=== PATIENT | female | born 1935 | race Caucasian/White ===

== ENCOUNTER 2017-08-21 13:39 | Observation (INO) | payer MEDICARE, OTHER ==
--- NOTE | 2017-08-21 13:59 | RADIOLOGY REPORT (SQ) ---
EXAM DESCRIPTION: CT HEAD WITHOUT COMPLETED DATE/TIME: 08/21/2017 1:45 pm REASON FOR STUDY: poss stroke COMPARISON: 2012 TECHNIQUE: Axial images acquired through the brain without intravenous contrast. Images reviewed wi th bone, brain and subdural windows. Additional sagittal and coronal reconstructions were generated. Images stored on PACS. All CT scanners at this facility use dose modulation, iterative reconstruction, and/or weight based d osing when appropriate to reduce radiation dose to as low as reasonably achievable (ALARA). [facility]: Dose Right [facility]: CareDose [facility]: Dose Right [facility]: Teradose 4D [facility]: Smart Secoo RADIATION DOSE: CT Rad equipment meets quality standard of care and radiation dose reduction techniq ues were employed. CTDIvol: 53.2 mGy. DLP: 1044 mGy-cm. mGy. LIMITATIONS: None. FINDINGS: VENTRICLES: Normal size and contour. CEREBRUM: No masses. No hemorrhage. No midline shift. No evidence for acute infarction. Normal gra y/white matter differentiation. No areas of low density in the white matter. CEREBELLUM: No masses. No hemorrhage. No alteration of density. No evidence for acute infarction. EXTRAAXIAL SPACES: No fluid collections. No masses. ORBITS AND GLOBE: No intra- or extraconal masses. Normal contour of globe without masses. CALVARIUM: No fracture. PARANASAL SINUSES: No fluid or mucosal thickening. SOFT TISSUES: No mass or hematoma. OTHER: No other significant finding. IMPRESSION: NORMAL BRAIN CT WITHOUT CONTRAST. EVIDENCE OF ACUTE STROKE: No COMMENT: Pertinent positive or negative findings of the imaging study reported as a CRITICAL EXAM t o ER PROVIDER at13:52 on 08/21/2017. Category of Critical Exam: Stroke alert Quality ID # [id number]: Final reports with documentation of one or more dose reduction techniques (e.g., Au tomated exposure control, adjustment of the mA and/or kV according to patient size, use of iterative reconstruction technique) TECHNICAL DOCUMENTATION: JOB ID: [id number] [email or web address]- All Rights Reserved Reading location - IP/workstation name: [email or web address]
--- NOTE | 2017-08-21 14:07 | ER Document Report ---
ED Medical Screen (RME) - General Stated Complaint: POSSIBLE STROKE Time Seen by Provider: 08/21/17 14:02 Mode of Arrival: Medic Information source: Patient Notes: Patient presents emergency department with complaints of left-sided weakness. Patient reports that she was on her way to put bernard on her 's grave with her son. She reports all of a sudden she could not spanish moss picker anything with her left hand and her face started drooping. She is unsure how long her symptoms lasted, sx gone now. Her son became very concerned. She reports history of stroke Denies chest pain shortness of breath. Reports she feels a little bit weak right now TRAVEL OUTSIDE OF THE [place] IN LAST 30 DAYS: No - Related Data Allergies/Adverse Reactions: oxycodone HCl [From Percodan] Allergy (Verified 12/01/14 03:12) oxycodone terephthalate [From Percodan] Allergy (Verified 12/01/14 03:12) Past Medical History - Past Medical History Cardiac Medical History: Reports: Hx Atrial Fibrillation, Hx Hypertension Pulmonary Medical History: Reports: Hx COPD Denies: Hx Tuberculosis Renal/ Medical History: Reports: Hx Kidney Stones Musculoskeltal Medical History: Reports Hx Arthritis Psychiatric Medical History: Reports: Hx Depression Past Surgical History: Reports: Hx Appendectomy, Hx Cholecystectomy, Hx Hysterectomy. Denies: Hx Pacemaker - Immunizations Hx Diphtheria, Pertussis, Tetanus Vaccination: Yes
[2017-08-21 14:15] LABS: ABSOLUTE EOSINOPHILS # (AUTO) 0.1 10^3/uL (0.0-0.6); ABSOLUTE LYMPHOCYTES (AUTO) 2.4 10^3/uL (0.5-4.7); ABSOLUTE MONOCYTES (AUTO) 0.7 10^3/uL (0.1-1.4); ABSOLUTE NEUT (AUTO) 5.2 10^3/uL (1.7-8.2); BASOPHILS % (AUTO) 0.3 % (0-2); EOSINOPHILS % (AUTO) 1.7 % (0-6); HEMATOCRIT 38.1 % (36.0-47.0); HEMOGLOBIN 12.5 g/dL (12.0-15.5); LYMPHOCYTES % (AUTO) 28.5 % (13-45); MEAN CORPUSCULAR HEMOGLOBIN 28.2 pg (27.0-33.4); MEAN CORPUSCULAR HGB CONC 32.8 g/dL (32.0-36.0); MEAN CORPUSCULAR VOLUME 86 fl (80-97); MONOCYTES % (AUTO) 7.9 % (3-13); PLATELET COUNT 215 10^3/uL (150-450); RED BLOOD COUNT 4.43 10^6/uL (3.72-5.28); RED CELL DISTRIBUTION WIDTH 14.1 % (11.5-14.0); SEGMENTED NEUTROPHILS % (AUTO) 61.6 % (42-78); TOTAL CELLS COUNTED % (AUTO) 100 %; WHITE BLOOD COUNT 8.5 10^3/uL (4.0-10.5)
[2017-08-21 14:28] LABS: PARTIAL THROMBOPLASTIN TIME 46.6 SEC (23.5-35.8); PROTHROMBIN TIME 24.7 SEC (11.4-15.4)
--- NOTE | 2017-08-21 14:28 | ER Document Report ---
ED General - General Chief Complaint: S/S of Possible Stroke Stated Complaint: POSSIBLE STROKE Time Seen by Provider: 08/21/17 14:02 Mode of Arrival: Medic Information source: Patient Notes: 82-year-old female with a history of hypertension, atrial fibrillation, COPD, CHF, previous CVA in 2011 presents via EMS after having an episode of left- sided weakness and left-sided facial drooping. Patient states that just prior to arrival she was in the car with her son trying to get money out of her wallet and was unable to move her left arm. She states that her son noticed that the left side of her mouth was drooping. She did experience some expressive aphasia. Upon arrival to the emergency department all symptoms have resolved. Patient denies any preceding headache, chest pain, shortness of breath, she does state that she experienced some blurred vision , left arm paresthesias prior to the episode. Currently she denies any headache, visual changes, nausea, vomiting, chest pain, shortness of breath, abdominal pain. She does admit to dark and urine recently but denies any fever, chills, dysuria , hematuria. TRAVEL OUTSIDE OF THE [place] IN LAST 30 DAYS: No - HPI Onset: Just prior to arrival Onset/Duration: Sudden Quality of pain: No pain Severity: None Associated symptoms: denies: Chest pain, Headache, Nausea, Vomiting, Shortness of breath Exacerbated by: denies: Coughing Relieved by: Denies Similar symptoms previously: Yes Recently seen / treated by doctor: No - Related Data Allergies/Adverse Reactions: oxycodone HCl [From Percodan] Allergy (Verified 12/01/14 03:12) oxycodone terephthalate [From Percodan] Allergy (Verified 12/01/14 03:12) Past Medical History - General Information source: Patient - Social History Smoking Status: Former Smoker Cigarette use (# per day): No Chew tobacco use (# tins/day): No Smoking Education Provided: No Frequency of alcohol use: None Drug Abuse: None Lives with: Family Family History: Reviewed & Not Pertinent - Past Medical History Cardiac Medical History: Reports: Hx Atrial Fibrillation, Hx Hypertension Pulmonary Medical History: Reports: Hx COPD Denies: Hx Tuberculosis Renal/ Medical History: Reports: Hx Kidney Stones Musculoskeltal Medical History: Reports Hx Arthritis Psychiatric Medical History: Reports: Hx Depression Past Surgical History: Reports: Hx Appendectomy, Hx Cholecystectomy, Hx Hysterectomy. Denies: Hx Pacemaker - Immunizations Hx Diphtheria, Pertussis, Tetanus Vaccination: Yes Hx Pneumococcal Vaccination: 05/08/12 Review of Systems - Review of Systems Notes: Patient denies fever, chills, sore throat, chest pain, shortness of breath, abdominal pain, dysuria. She does admit to transient blurred vision, left- sided weakness. all sx's now resolved. Constitutional: See HPI Physical Exam - Vital signs Vitals: Pulse Resp BP Pulse Ox 63 14 161/84 H 97 08/21/17 13:55 08/21/17 13:55 08/21/17 13:55 08/21/17 13:55 - General General appearance: Appears well, Alert In distress: None - HEENT Head: Normocephalic, Atraumatic Eyes: Normal Conjunctiva: Normal Extraocular movements intact: Yes - No nystagmus Pupils: PERRL Visual mills normal: Yes Ears: Normal Tympanic membrane: Normal Mucous membranes: Dry Pharynx: Normal - Respiratory Respiratory status: No respiratory distress. No: Respiratory distress, Tachypnea Chest status: Nontender Breath sounds: Normal. No: Decreased air movement Chest palpation: Normal - Cardiovascular Rhythm: Regular Heart sounds: Normal auscultation Murmur: No Pulses: Normal: Radial, Dorsalis pedis - Abdominal Inspection: Normal Distension: No distension Bowel sounds: Normal Tenderness: Nontender Organomegaly: No organomegaly - Back Back: Normal, Nontender - Extremities General upper extremity: Normal inspection, Nontender, Normal color, Normal ROM , Normal strength, Normal temperature. No: Edema General lower extremity: Normal inspection, Nontender, Normal color, Normal ROM , Normal strength, Normal temperature, Normal weight bearing. No: Edema, Dawn' s sign - Neurological Neuro grossly intact: Yes Cognition: Normal Orientation: AAOx4 [place] Coma Scale Eye Opening: Spontaneous [place] Coma Scale Verbal: Oriented [place] Coma Scale Motor: Obeys Commands [place] Coma Scale Total: 15 Speech: Normal Cranial nerves: No: Facial palsy Cerebellar coordination: Normal. No: Gait ataxia Motor strength normal: LUE, RUE, LLE, RLE Sensory: Normal - Psychological Associated symptoms: Normal affect, Normal mood. No: Anxious, Confused, Uncooperative - Skin Skin Temperature: Warm Skin Moisture: Dry Skin Color: Normal Skin Turgor: Tenting Course - Re-evaluation Re-evalutation: Laboratory 08/21/17 08/21/17 08/21/17 13:55 13:55 13:55 WBC 8.5 RBC 4.43 Hgb 12.5 Hct 38.1 MCV 86 MCH 28.2 MCHC 32.8 RDW 14.1 H Plt Count 215 Seg Neutrophils % 61.6 Lymphocytes % 28.5 Monocytes % 7.9 Eosinophils % 1.7 Basophils % 0.3 Absolute Neutrophils 5.2 Absolute Lymphocytes 2.4 Absolute Monocytes 0.7 Absolute Eosinophils 0.1 Absolute Basophils 0.0 PT 24.7 H INR 2.10 APTT 46.6 H Sodium 138.2 Potassium 4.7 Chloride 100 Carbon Dioxide 33 H Anion Gap 5 BUN 21 H Creatinine 0.90 Est GFR ( Amer) > 60 Est GFR (Non-Af Amer) > 60 Glucose 99 Calcium 9.3 Total Bilirubin 0.9 Direct Bilirubin 0.3 Neonat Total Bilirubin Not Reportable Neonat Direct Bilirubin Not Reportable Neonat Indirect Bili Not Reportable AST 21 ALT 26 Alkaline Phosphatase 73 Creatine Kinase 37 CK-MB (CK-2) Troponin I NT-Pro-B Natriuret Pep Total Protein 6.9 Albumin 3.8 Urine Color Urine Appearance Urine pH Ur Specific Jeremiah Urine Protein Urine Glucose (UA) Urine Ketones Urine Blood Urine Nitrite Urine Bilirubin Urine Urobilinogen Ur Leukocyte Esterase Urine WBC (Auto) Urine RBC (Auto) U Hyaline Cast (Auto) Squamous Epi Cells Auto Urine Mucus (Auto) Urine Ascorbic Acid 08/21/17 08/21/17 08/21/17 13:55 13:55 14:44 WBC RBC Hgb Hct MCV MCH MCHC RDW Plt Count Seg Neutrophils % Lymphocytes % Monocytes % Eosinophils % Basophils % Absolute Neutrophils Absolute Lymphocytes Absolute Monocytes Absolute Eosinophils Absolute Basophils PT INR APTT Sodium Potassium Chloride Carbon Dioxide Anion Gap BUN Creatinine Est GFR ( Amer) Est GFR (Non-Af Amer) Glucose Calcium Total Bilirubin Direct Bilirubin Neonat Total Bilirubin Neonat Direct Bilirubin Neonat Indirect Bili AST ALT Alkaline Phosphatase Creatine Kinase CK-MB (CK-2) 0.51 Troponin I < 0.012 NT-Pro-B Natriuret Pep 1090 H Total Protein Albumin Urine Color STRAW Urine Appearance CLEAR Urine pH 5.0 Ur Specific Jeremiah 1.007 Urine Protein NEGATIVE Urine Glucose (UA) NEGATIVE Urine Ketones NEGATIVE Urine Blood SMALL H Urine Nitrite NEGATIVE Urine Bilirubin NEGATIVE Urine Urobilinogen NEGATIVE Ur Leukocyte Esterase NEGATIVE Urine WBC (Auto) 1 Urine RBC (Auto) 2 U Hyaline Cast (Auto) 3 Squamous Epi Cells Auto 1 Urine Mucus (Auto) RARE Urine Ascorbic Acid NEGATIVE Chest X-Ray 08/21/17 00:00 IMPRESSION: Linear scarring/ atelectasis. Cardiac enlargement. Head CT 08/21/17 00:00 IMPRESSION: NORMAL BRAIN CT WITHOUT CONTRAST. EVIDENCE OF ACUTE STROKE: No Head CTA 08/21/17 14:06 IMPRESSION: NO CTA EVIDENCE OF STENOSIS OR ANEURYSM OF THE [place]. Neck CTA 08/21/17 14:06 IMPRESSION: CALCIFIED AND NONCALCIFIED ATHEROSCLEROTIC PLAQUE WITHOUT SIGNIFICANT STENOSIS. NO DISSECTION. 08/21/17 14:36 82-year-old female with a history of atrial fibrillation, hypertension, CHF presents after an episode of left-sided weakness and difficulty speaking. Patient states this happened approximately 1 hour prior to arrival. Upon her arrival to the emergency department symptoms have resolved. NIH was performed and 0 at this time. Patient was placed on radiation monitor and an EKG was obtained which shows the patient to be in atrial fibrillation with a controlled rate. She is on Xarelto for this. Patient had a previous CVA in 2011. She states this left her with no residual deficits. 08/21/17 16:15 On Reevaluation family is now at the bedside. Son who witnessed the episode states it lasted approximately 5 minutes. 08/21/17 22:51 Patient will be admitted to hospitalist for observation. 08/21/17 22:52 Patient would benefit from observation overnight. - Vital Signs Vital signs: Temp Pulse Resp BP Pulse Ox 97.7 F 58 L 20 115/97 H 97 08/21/17 20:16 08/21/17 20:54 08/21/17 20:54 08/21/17 20:54 08/21/17 20:54 - Laboratory Result Diagrams: 08/21/17 13:55 08/21/17 13:55 Laboratory results interpreted by me: 08/21/17 08/21/17 08/21/17 13:55 13:55 13:55 RDW 14.1 H PT 24.7 H APTT 46.6 H Carbon Dioxide 33 H BUN 21 H NT-Pro-B Natriuret Pep Urine Blood 08/21/17 08/21/17 13:55 14:44 RDW PT APTT Carbon Dioxide BUN NT-Pro-B Natriuret Pep 1090 H Urine Blood SMALL H - Diagnostic Test Radiology reviewed: Image reviewed, Reports reviewed - EKG Interpretation by Me Rhythm: A.Fib Discharge - Discharge Clinical Impression: Transient ischemic attack (TIA) Condition: Good Disposition: ADMITTED OBSERVATION Admitting Provider: Hospitalist ED NIH Stroke Scale - NIH Stroke Scale *: 1. NIH scale should be completed with appropriate accompanying assessment tools. *: 2. The NIH should reflect what the patient is capable of doing and should not be coached by the clinician. 1a. Level of Consciousness: 0=Alert;keenly responsive -: 1=Drowsy -: 2=Obtunded -: 3=Coma/unresponsive or reflex to noxious stimuli. 1a. Responses: 0 1b. Orientation Questions: a. What month is it? -: b. How old are you? -: 0=Answers both questions correctly. -: 1=Answers one question correctly or patient is intubated or has orotracheal trauma. -: 2=Answers neither question correctly. 1b. Responses: 0 1c. Response to commands: a. Open and close eyes? -: b. Cnc Mill Set Up Operator and release hand? -: Credit is given despite weakness. Demonstration of task is permitted. Substitute command if hands cannot be used. -: 0=Performs both tasks correctly -: 1=Performs one task correctly -: 2=Performs neither task correctly 1c. Responses: 0 2. Gaze: Establish eye contact and instruct patient to "Follow my finger" -: 0=Normal -: 1=Partial gaze palsy. Gaze is abnormal in one or both eyes, but where forced deviation or total gaze paresis is not present. -: 2=Forced deviation or total gaze paresis. 2. Responses: 0 3. Visual Mills: Sees fingers in all four quadrants. -: 0=No visual loss. -: 1=Partial hemianopsia. -: 2=Complete hemianopsia. -: 3=Bilateral hemianopsia (including Cortical blindness) 3. Responses: 0 4. Facial Movement: Instruct patient to: -: a. Show me your teeth -: b. Raise your eyebrows -: c. Close your eyes -: d. Smile -: 0=Normal symmetrical movement -: 1=Minor paralysis (flattened nasolabial fold, asymmetry on smiling). -: 2=Partial paralysis (total or near total paralysis of lower face). -: 3=Complete paralysis of upper and lower face 4. Responses: 0 5. Motor functions (left arm): Alternate sides and extend each arm with palms down (90 degrees if sitting or 45 degrees for supine). -: 0=No drift;limb holds for full 10 seconds. -: 1=Drift; limb holds but drifts down before full 10 seconds, but does not hit bed. -: 2=Some effort against gravity; limb cannot get to or maintain position. -: 3=No effort against gravity; limb falls. -: 4=No movement. -: UN=Amputation, joint fusion, explain in comments. 5. Responses (left arm): 0 5. Motor Functions (right arm): Alternate sides and extend each arm with palms down (90 degrees if sitting or 45 degrees for supine). -: 0=No drift;limb holds for full 10 seconds. -: 1=Drift; limb holds but drifts down before full 10 seconds, but does not hit bed. -: 2=Some effort against gravity; limb cannot get to or maintain position. -: 3=No effort against gravity; limb falls. -: 4=No movement. -: UN=Amputation, joint fusion, explain in comments. 5. Responses (right arm): 0 6. Motor Functions (left leg): With patient lying supine, alternate sides and extend each leg (30 degrees always while supine). -: 0=No drift, leg holds position for full 5 seconds -: 1=Drift; leg falls before full 5 seconds but does not hit bed. -: 2=Some effort against gravity, leg falls to bed but some effort against gravity. -: 3=No effort against gravity, leg falls to bed immediately. -: 4=No movement. -: UN=Amputation, joint fusion; explain in comments. 6. Responses (left leg): 0 6. Motor Functions (right leg): With patient lying supine, alternate sides and extend each leg (30 degrees always while supine). -: 0=No drift, leg holds position for full 5 seconds -: 1=Drift; leg falls before full 5 seconds but does not hit bed. -: 2=Some effort against gravity, leg falls to bed but some effort against gravity. -: 3=No effort against gravity, leg falls to bed immediately. -: 4=No movement. -: UN=Amputation, joint fusion; explain in comments. 6. Responses (right leg): 0 7. Limb Ataxia: With eyes open instruct patient to: -: a. "Touch your finger to your nose". -: b. "Touch your heel to your pichardo" -: 0=Absent -: 1=Present in one limb. -: 2=Present in two limbs. -: UN=Amputation or joint fusion; explain in comments. 7. Responses: 0 8. Sensory: Test sensation using pinprick or noxious stimuli. Test as many body parts as possible. -: 0=Normal;no sensory loss -: 1=Mile to moderate sensory loss (patient feels pin prick but is less sharp on affected side). -: 2=Severe or total sensory loss. 8. Responses: 0 9. Best Language: Instruct patient to: -: a. "Describe what you see in this picture." -: b. "Name the items in this picture." -: c. "Read these sentences." -: 0=No aphasia, normal -: 1=Mild to moderate aphasia. -: 2=Severe aphasia -: 3=Mute, global aphasia, no usable speech or auditory comprehension. 9. Responses: 0 10. Articulation, Dysarthia: Instruct patient to: -: "Read these words" or "Repeat these words" -: 0=Normal -: 1=Mild to moderate; patient may slur some words but can be understood without difficulty. -: 2=Severe; patients speech so slurred as to be unintelligible in the absence of dysphasia. -: UN=Intubated or other physical barrier, explain in comments. 10. Responses: 0 11. Extinction or inattention: 0=No abnormality -: 1= Visual, tactile, auditory, spatial, or personal inattention or extinction to bilateral simulation in one or the sensory modalities. -: 2=Profound gary-inattention or gary-inattention to more than one modality; does not recognize own hand. 11. Responses: 0 - 1435 Total Score: 0
[2017-08-21 14:31] LABS: ALANINE AMINOTRANSFERASE 26 U/L (9-52); ALBUMIN 3.8 g/dL (3.5-5.0); ALKALINE PHOSPHATASE 73 U/L (38-126); ANION GAP 5 (5-19); ASPARTATE AMINO TRANSFERASE 21 U/L (14-36); BILIRUBIN,DIRECT 0.3 mg/dL (0.0-0.4); BILIRUBIN,TOTAL 0.9 mg/dL (0.2-1.3); BLOOD UREA NITROGEN 21 mg/dL (7-20); CALCIUM 9.3 mg/dL (8.4-10.2); CARBON DIOXIDE 33 mmol/L (22-30); CHLORIDE 100 mmol/L (98-107); CREATINE KINASE 37 U/L (30-135); GLUCOSE 99 mg/dL (75-110); POTASSIUM 4.7 mmol/L (3.6-5.0); SODIUM 138.2 mmol/L (137-145); TOTAL PROTEIN 6.9 g/dL (6.3-8.2)
--- NOTE | 2017-08-21 14:38 | RADIOLOGY REPORT (SQ) ---
EXAM DESCRIPTION: CHEST SINGLE VIEW COMPLETED DATE/TIME: 08/21/2017 1:58 pm REASON FOR STUDY: poss stroke COMPARISON: None. EXAM PARAMETERS: NUMBER OF VIEWS: One view. TECHNIQUE: Single frontal radiographic view of the chest acquired. RADIATION DOSE: NA LIMITATIONS: None. FINDINGS: LUNGS AND PLEURA: No opacities. Linear scarring/ atelectasis. MEDIASTINUM AND HILAR STRUCTURES: No masses. Contour normal. HEART AND VASCULAR STRUCTURES: Heart enlarged without failure. BONES: No acute findings. HARDWARE: None in the chest. OTHER: No other significant finding. IMPRESSION: Linear scarring/ atelectasis. Cardiac enlargement. TECHNICAL DOCUMENTATION: JOB ID: [id number] [employer]- All Rights Reserved Reading location - IP/workstation name: [email or web address]
[2017-08-21] MEDS ORDERED: NORMAL SALINE 500 ML IV ONE (14:39)
[2017-08-21 14:43] LABS: CREATINE KINASE MB 0.51 ng/mL (<4.55)
[2017-08-21 14:47] LABS: TROPONIN I < 0.012 ng/mL
--- NOTE | 2017-08-21 15:15 | RADIOLOGY REPORT (SQ) ---
EXAM DESCRIPTION: CTA HEAD COMPLETED DATE/TIME: 08/21/2017 3:03 pm REASON FOR STUDY: stroke sx's COMPARISON: Noncontrast head CT 08/21/2017 TECHNIQUE: Post IV contrast scanning, thin section axial imaging through the brain to evaluate the a rterial structures. Source and MIP images are saved and reviewed on PACS. Advanced 3D imaging as volume-rendering, MIPs, SSD performed? yes All CT scanners at this facility use dose modulation, iterative reconstruction, and/or weight based d osing when appropriate to reduce radiation dose to as low as reasonably achievable (ALARA). [facility]: Dose Right [facility]: CareDose [facility]: Dose Right [facility]: Teradose 4D [facility]: [employer] CONTRAST TYPE AND DOSE: Contrast type and volume not provided on scanned paperwork. RENAL FUNCTION: BUN 21; creatinine 0.90 LIMITATIONS: None. FINDINGS: [place]: The anterior, middle, posterior cerebral arteries are all patent. No ev idence of aneurysm or focal stenosis. POSTERIOR CIRCULATION: The distal vertebral arteries are patent as is the basilar artery. No aneurysm . BRAIN: No gross enhancing lesions as visualized. The superior cerebral hemispheres are not included in the field of view. BONES: Intact as visualized. SINUSES: No fluid or mucosal thickening. OTHER: Calcified atheromatous plaque is seen within the cavernous segments of the internal carotid ar teries, without focal stenosis. IMPRESSION: NO CTA EVIDENCE OF STENOSIS OR ANEURYSM OF THE [place]. TECHNICAL DOCUMENTATION: JOB ID: [id number] Quality ID # [id number]: Final reports with documentation of one or more dose reduction techniques (e.g., Au tomated exposure control, adjustment of the mA and/or kV according to patient size, use of iterative reconstruction technique) 2010 [employer]- All Rights Reserved Reading location - IP/workstation name: [email or web address]
--- NOTE | 2017-08-21 15:18 | RADIOLOGY REPORT (SQ) ---
EXAM DESCRIPTION: CTA NECK COMPLETED DATE/TIME: 08/21/2017 3:03 pm REASON FOR STUDY: stroke sx's COMPARISON: None. TECHNIQUE: Axial dynamic scanning technique with dynamic contrast enhancement through the extra-crawler dragline operator nial carotid and vertebral arteries. Multiplanar reconstruction. 3-D MIPS and Volume-rendered imag es acquired at the workstation and saved to PACS. Images are reviewed in soft tissue, bone, lung w indows. All CT scanners at this facility use dose modulation, iterative reconstruction, and/or weight based d osing when appropriate to reduce radiation dose to as low as reasonably achievable (ALARA). [facility]: Dose Right [facility]: CareDose [facility]: Dose Right [facility]: Teradose 4D [facility]: [employer] CONTRAST TYPE AND DOSE: contrast/concentration: Isovue 370.00 mg/ml; Total Contrast Delivered: 70.0 ml; Total Saline Delivered: 75.0 ml RENAL FUNCTION: BUN 21; creatinine 0.9 LIMITATIONS: None. FINDINGS: AORTIC ARCH: Normal three-vessel origin. Bilateral subclavian arteries are patent. No d issection. RIGHT CAROTIDS: Calcified and noncalcified atherosclerotic plaque is seen within the carotid bulb wit hout significant stenosis. Patent common, internal and external carotid arteries without suggestion of significant stenosis or irregular plaque. No dissection. RIGHT VERTEBRAL: Patent. No dissection. LEFT CAROTIDS: Patent common, internal and external carotid arteries without suggestion of significan t stenosis or irregular plaque. No dissection. LEFT VERTEBRAL: Patent. No dissection. OTHER: No other significant finding. OTHER: 3-D reconstructions confirm findings. IMPRESSION: CALCIFIED AND NONCALCIFIED ATHEROSCLEROTIC PLAQUE WITHOUT SIGNIFICANT STENOSIS. NO DISS ECTION. COMMENT: Quality ID #[id number]: Measurements of distal internal carotid diameter were used as the denomina tor for stenosis measurement. TECHNICAL DOCUMENTATION: JOB ID: [id number] Quality ID # [id number]: Final reports with documentation of one or more dose reduction techniques (e.g., Au tomated exposure control, adjustment of the mA and/or kV according to patient size, use of iterative reconstruction technique) 2010 [employer]- All Rights Reserved Reading location - IP/workstation name: [email or web address]
[2017-08-21 15:27] LABS: APPEARANCE,URINE CLEAR; BILIRUBIN,URINE NEGATIVE (NEGATIVE); COLOR,URINE STRAW; GLUCOSE, URINE NEGATIVE (NEGATIVE); KETONES,URINE NEGATIVE (NEGATIVE); URINE SPECIFIC GRAVITY 1.007
[2017-08-21 15:28] LABS: LEUKOCYTE ESTERASE,URINE NEGATIVE (NEGATIVE); NITRITE,URINE NEGATIVE (NEGATIVE); PROTEIN,URINE NEGATIVE (NEGATIVE); UROBILINOGEN,URINE NEGATIVE mg/dL (<2.0)
[2017-08-21] MEDS ORDERED: ACETAMINOPHEN 325 MG TABLET PO PRN (16:52)
[2017-08-21] MEDS ORDERED: CLONAZEPAM 1 MG TABLET PO PRN (17:03)
[2017-08-21] MEDS ORDERED: HYDRALAZINE HCL INJ/PF 20 MG/1 ML SDV IV PRN (17:13)
[2017-08-21] MEDS ORDERED: DILTIAZEM HCL INJ 25 MG/5 ML VIAL IV PRN (17:14)
--- NOTE | 2017-08-21 17:21 | EKG REPORT ---
SEVERITY:- ABNORMAL ECG - ATRIAL FIBRILLATION LEFT ANTERIOR FASCICULAR BLOCK PROBABLE LVH WITH SECONDARY REPOL ABNRM ANTERIOR Q WAVES, POSSIBLY DUE TO LVH : Confirmed by: Taiwo Crowder MD 21-Aug-2017 17:20:47
--- NOTE | 2017-08-21 18:06 | PDOC H&P ---
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 Patient states that she was visiting a gravesite today and noticed that she started having trouble with holding things in her left hand. Her left hand felt numb at the time. Her family member noticed that her left side of her face appeared to droop and she became dysarthric. Patient's family brought her immediately to the emergency department. Soon after arriving the patient noticed that she was able to speak more clearly. Also described facial droop resolving and getting her feeling back in her left hand. Patient admits to being anxious and nervous about her past medical treatment. Patient states in 2011 she had a CVA with left-sided weakness. At that time she was significantly agitated and confused. Recovered with an extended stay in rehab. Denies any other CVAs or TIAs. Patient has a non-stenosed CTA head and neck study. She is in chronic Afib on Xarelto. Her BP which is described as well controled, was elevated to 173/84 on monitor. Will admit as observation for her TIA, allow permissive HTN, and optimize medications for her TIA. She will benefit from OP followup with Neurology. Past Medical History Cardiac Medical History: Reports: Atrial Fibrillation, Hypertension Pulmonary Medical History: Reports: Chronic Obstructive Pulmonary Disease (COPD) Denies: Tuberculosis Musculoskeltal Medical History: Reports: Arthritis Psychiatric Medical History: Reports: Depression Past Surgical History Past Surgical History: Reports: Appendectomy, Cholecystectomy, Hysterectomy Denies: Pacemaker Social History Lives with: Family Smoking Status: Former Smoker Last Time Smoked: >30 years ago last time she smoked Frequency of Alcohol Use: None Hx Recreational Drug Use: No Hx Prescription Drug Abuse: No Family History Family History: Father had Bladder Cancer Mother had an PR Parental Family History Reviewed: Yes Children Family History Reviewed: Yes Sibling(s) Family History Reviewed.: Yes Medication/Allergy Home Medications: Digoxin 125 mg PO QAM 11/30/14 Furosemide [Lasix] 40 mg PO QAM 11/30/14 Rivaroxaban [Xarelto] 15 mg PO QPM 11/30/14 Acetaminophen [Tylenol] 500 mg PO BID 08/23/15 Magnesium Oxide 2 tab PO DAILY 08/23/15 Potassium Chloride [K-Tab ER] 20 meq PO DAILY 08/23/15 Carvedilol [Coreg] 1 tab PO BID 08/30/15 Clonazepam [Klonopin 1 mg Tablet] 1 mg PO QHS PRN 08/30/15 Allergies/Adverse Reactions: oxycodone HCl [From Percodan] Allergy (Verified 12/01/14 03:12) oxycodone terephthalate [From Percodan] Allergy (Verified 12/01/14 03:12) Review of Systems Constitutional: PRESENT: weakness. ABSENT: chills, fatigue, fever(s), headache( s), night sweats Eyes: PRESENT: as per HPI, visual disturbances - describes transient blurry vision. Ears: PRESENT: as per HPI. ABSENT: hearing changes Cardiovascular: ABSENT: chest pain, dyspnea on exertion, edema, palpitations Respiratory: ABSENT: cough, dyspnea, sputum Gastrointestinal: ABSENT: abdominal pain, diarrhea, nausea, vomiting Genitourinary: ABSENT: as per HPI, dysuria, hematuria Musculoskeletal: ABSENT: deformity, joint swelling Neurological: PRESENT: abnormal speech, confusion, focal weakness, numbness, weakness, other - period of left sided facial droop, dysarthria, left hand numbness/weakness, confusion: all now resolved. Psychiatric: PRESENT: anxiety. ABSENT: hallucinations Endocrine: ABSENT: as per HPI, flushing, polydipsia, polyphagia Hematologic/Lymphatic: ABSENT: easy bruising Physical Exam Vital Signs: Temp Pulse Resp BP Pulse Ox 63 19 157/99 H 94 08/21/17 13:55 08/21/17 16:00 08/21/17 14:02 08/21/17 16:00 General appearance: PRESENT: no acute distress, cooperative, obese Head exam: PRESENT: atraumatic, normocephalic Eye exam: PRESENT: conjunctiva pink, EOMI, PERRLA. ABSENT: nystagmus, scleral icterus Ear exam: PRESENT: normal external ear exam. ABSENT: bleeding Mouth exam: PRESENT: moist, neck supple. ABSENT: dry mucosa Neck exam: PRESENT: full ROM. ABSENT: JVD, lymphadenopathy, tenderness Respiratory exam: PRESENT: crackles, symmetrical. ABSENT: accessory muscle use , rhonchi, wheezes Cardiovascular exam: PRESENT: irregular rhythm - atrial fibrillation on monitor throughout exam., +S1, +S2. ABSENT: clicks, gallop, RRR Pulses: PRESENT: normal radial pulses, normal dorsalis pedis pul Vascular exam: PRESENT: normal capillary refill. ABSENT: pallor GI/Abdominal exam: PRESENT: soft. ABSENT: ascites, distended, mass, rigid, tenderness Extremities exam: ABSENT: calf tenderness, clubbing, pedal edema Musculoskeletal exam: PRESENT: ambulatory, full ROM Neurological exam: PRESENT: alert, oriented to person, oriented to place, oriented to time, oriented to situation, reflexes normal, CN II-XII grossly intact, other - No focal deficit found on exam. Speech is back to baseline. Patient swallowing liquid without difficulty. No focal numbness found on exam with the exception of an area on the right side of her face, which she states is chronic.. ABSENT: motor sensory deficit Psychiatric exam: PRESENT: anxious. ABSENT: manic, unusual affect Focused psych exam: ABSENT: euphoric, paranoid Skin exam: ABSENT: abrasion, cyanosis, dry Results Laboratory Results: 08/21/17 13:55 08/21/17 13:55 08/21/17 08/21/17 08/21/17 13:55 13:55 14:44 WBC 8.5 RBC 4.43 Hgb 12.5 Hct 38.1 MCV 86 MCH 28.2 MCHC 32.8 RDW 14.1 H Plt Count 215 Seg Neutrophils % 61.6 Lymphocytes % 28.5 Monocytes % 7.9 Eosinophils % 1.7 Basophils % 0.3 Absolute Neutrophils 5.2 Absolute Lymphocytes 2.4 Absolute Monocytes 0.7 Absolute Eosinophils 0.1 Absolute Basophils 0.0 Sodium 138.2 Potassium 4.7 Chloride 100 Carbon Dioxide 33 H Anion Gap 5 BUN 21 H Creatinine 0.90 Est GFR ( Amer) > 60 Est GFR (Non-Af Amer) > 60 Glucose 99 Calcium 9.3 Total Bilirubin 0.9 AST 21 ALT 26 Alkaline Phosphatase 73 Total Protein 6.9 Albumin 3.8 Urine Color STRAW Urine Appearance CLEAR Urine pH 5.0 Ur Specific [place] 1.007 Urine Protein NEGATIVE Urine Glucose (UA) NEGATIVE Urine Ketones NEGATIVE Urine Blood SMALL H Urine Nitrite NEGATIVE Ur Leukocyte Esterase NEGATIVE Urine WBC (Auto) 1 Urine RBC (Auto) 2 08/21/17 08/21/17 08/21/17 13:55 13:55 13:55 Creatine Kinase 37 CK-MB (CK-2) 0.51 Troponin I < 0.012 NT-Pro-B Natriuret Pep 1090 H Impressions: Chest X-Ray 08/21/17 00:00 IMPRESSION: Linear scarring/ atelectasis. Cardiac enlargement. Head CT 08/21/17 00:00 IMPRESSION: NORMAL BRAIN CT WITHOUT CONTRAST. EVIDENCE OF ACUTE STROKE: No Head CTA 08/21/17 14:06 IMPRESSION: NO CTA EVIDENCE OF STENOSIS OR ANEURYSM OF THE [place] OF [place]. Neck CTA 08/21/17 14:06 IMPRESSION: CALCIFIED AND NONCALCIFIED ATHEROSCLEROTIC PLAQUE WITHOUT SIGNIFICANT STENOSIS. NO DISSECTION. Assessment & Plan - Diagnosis (1) TIA (transient ischemic attack) Is this a current diagnosis for this admission?: Yes Plan: Patient was currently taking Xarelto for her Atrial fibrillation. CTA of head and neck did not demonstrate any stenoses. Admit to [facility] [place] under obs status check TTE for thrombus in setting of Afib. Check A1c, lipid panel, TSH. Start ASA, Lipitor reduce BP meds for permissive HTN. Q4H neuro monitoring. consult PT/OT/Speech. Patient appears to be at baseline. possible d/c home in next 24 hours (2) Atrial fibrillation Is this a current diagnosis for this admission?: Yes Plan: Continue Xarelto. Denies missing a dose. will continue a reduced dose of coreg for permissive htn prn Diltiazem IV with use parameters. (3) CHF (congestive heart failure) Is this a current diagnosis for this admission?: Yes Plan: Crackles in bases of her lungs. continue home diuretics and potassium support. Checking TTE for TIA workup. Last TTE in 08/2015 in chart shows a preserved EF. Prior pulmonary HTN noted on echo. hold coreg at present for permissive HTN continue digoxin from home, check level. (4) Pulmonary hypertension Is this a current diagnosis for this admission?: Yes Plan: continue her home lasix dosing, and potassium (5) Arthritis Is this a current diagnosis for this admission?: Yes Plan: prn Tylenol (6) Hypertension Is this a current diagnosis for this admission?: Yes Plan: permissive HTN desired. treat with Hydralazine IV if SBP > 220 (7) Anxiety Is this a current diagnosis for this admission?: Yes Plan: continue clonazepam from home. - Time Time Spent: 30 to 50 Minutes Anticipated discharge: Home Within: within 24 hours
[2017-08-21] MEDS ORDERED: ASPIRIN 325 MG TABLET PO ONE (18:15)
[2017-08-21] MEDS ORDERED: ATORVASTATIN CALCIUM 80 MG TABLET PO ONE (18:30)
--- NOTE | 2017-08-21 18:44 | XCELERA REPORT ---
[address] [address] Transthoracic Echocardiogram Report Name: WILBERT TERRAZAS Age: 82 yrs Gender: Female : 1935 Patient Status: Inpatient Patient Location: [place] [address]^A Study Date: 08/21/2017 06:07 PM Height: 60 in Weight: 153 lb BSA: 1.7 m2 Procedure: A complete two-dimensional transthoracic echocardiogram was performed (2D, M-mode, spectral and color flow Doppler). The study was technically adequate with some images being suboptimal in quality. Reason For Study: evaluate for thrombus, bubble study, CHF, PHTN Ordering Physician: NILDA LANDIS Performed By: Saumya Shabazz Interpretation Summary The left ventricular ejection fraction is normal. There is mild concentric left ventricular hypertrophy. The left ventricle is grossly normal size. Doppler measurements suggest pseudonormalized left ventricular relaxation, which is associated with grade II/IV or mild to moderate diastolic dysfunction Wall motion cannot be accurately commented on, but no definite regional wall motion abnormalities noted. The right ventricle is mild to moderately dilated. The right ventricular systolic function is normal. The right atrium is mildly dilated. Borderline left atrial enlargement. There is no mitral valve stenosis. There is a trace to mild amount of mitral regurgitation There is no aortic valve stenosis No aortic regurgitation is present. There is a trace or physiologic amount of tricuspid regurgitation Tricuspid regurgitation jet envelope not well defined to measure RV systolic pressure accurately. The aortic root is not well visualized but is probably normal size. The inferior vena cava appeared normal and decreased < 50% with respiration (RAP 10-15 mmHg) There is no pericardial effusion. No definite cardiac source of CVA/TIA noted on this particular trans- thoracic study. Consider KRYSTYNA if clinically indicated. May consider mobile cardiac telemetry monitoring (MCT) for ruling out transient AFIB. Probable A FIB during the study MMode/2D Measurements & Calculations RVDd: 3.6 cm LVIDd: 3.5 cm FS: 36.1 % Ao root diam: 3.1 cm IVSd: 1.3 cm LVIDs: 2.3 cm EDV(Teich): 52.1 ml LVPWd: 1.4 cm ESV(Teich): 17.3 ml Ao root area: 7.4 cm2 EF(Teich): 66.7 % LA dimension: 3.2 cm Doppler Measurements & Calculations MV E max shankar: MV P1/2t max shankar: Ao V2 max: LV V1 max P.8 cm/sec 95.8 cm/sec 118.1 cm/sec 2.7 mmHg MV P1/2t: 60.7 msec Ao max PG: LV V1 max: 5.6 mmHg 82.4 cm/sec MVA(P1/2t): 3.6 cm2 MV dec slope: 462.4 cm/sec2 PA V2 max: TR max shankar: 88.4 cm/sec 248.4 cm/sec PA max PG: TR max P.7 mmHg 3.1 mmHg Left Ventricle The left ventricle is grossly normal size. There is mild concentric left ventricular hypertrophy. The left ventricular ejection fraction is normal. Doppler measurements suggest pseudonormalized left ventricular relaxation, which is associated with grade II/IV or mild to moderate diastolic dysfunction. Wall motion cannot be accurately commented on, but no definite regional wall motion abnormalities noted. Right Ventricle The right ventricle is mild to moderately dilated. There is normal right ventricular wall thickness. The right ventricular systolic function is normal. Atria The right atrium is mildly dilated. Borderline left atrial enlargement. Interarterial septum not well visualized and not well dopplered. Cannot comment on ASD/PFO presence. Mitral Valve The mitral valve is grossly normal. There is no mitral valve stenosis. There is a trace to mild amount of mitral regurgitation. Aortic Valve The aortic valve is grossly normal. There is no aortic valve stenosis. No aortic regurgitation is present. Tricuspid Valve The tricuspid valve is not well visualized, but is grossly normal. There is no tricuspid stenosis. There is a trace or physiologic amount of tricuspid regurgitation. Tricuspid regurgitation jet envelope not well defined to measure RV systolic pressure accurately. Pulmonic Valve The pulmonic valve is not well visualized. Great Vessels The aortic root is not well visualized but is probably normal size. The inferior vena cava appeared normal and decreased < 50% with respiration (RAP 10-15 mmHg). Effusions There is no pericardial effusion. Incidental Findings No definite cardiac source of CVA/TIA noted on this particular trans- thoracic study. Consider KRYSTYNA if clinically indicated. May consider mobile cardiac telemetry monitoring (MCT) for ruling out transient AFIB. Probable A FIB during the study. : NILDA LANDIS > Shweta Price
[2017-08-21] MEDS ORDERED: RIVAROXABAN 15 MG TABLET PO ONE (19:30)
[2017-08-22 05:48] LABS: ABSOLUTE EOSINOPHILS # (AUTO) 0.2 10^3/uL (0.0-0.6); ABSOLUTE LYMPHOCYTES (AUTO) 2.6 10^3/uL (0.5-4.7); ABSOLUTE MONOCYTES (AUTO) 0.7 10^3/uL (0.1-1.4); ABSOLUTE NEUT (AUTO) 3.8 10^3/uL (1.7-8.2); BASOPHILS % (AUTO) 0.3 % (0-2); EOSINOPHILS % (AUTO) 3.1 % (0-6); HEMATOCRIT 36.2 % (36.0-47.0); HEMOGLOBIN 11.9 g/dL (12.0-15.5); LYMPHOCYTES % (AUTO) 35.2 % (13-45); MEAN CORPUSCULAR HEMOGLOBIN 28.2 pg (27.0-33.4); MEAN CORPUSCULAR HGB CONC 32.8 g/dL (32.0-36.0); MEAN CORPUSCULAR VOLUME 86 fl (80-97); MONOCYTES % (AUTO) 9.7 % (3-13); PLATELET COUNT 201 10^3/uL (150-450); RED CELL DISTRIBUTION WIDTH 14.3 % (11.5-14.0); SEGMENTED NEUTROPHILS % (AUTO) 51.7 % (42-78); TOTAL CELLS COUNTED % (AUTO) 100 %; WHITE BLOOD COUNT 7.3 10^3/uL (4.0-10.5)
[2017-08-22 06:17] LABS: ANION GAP 7 (5-19); BLOOD UREA NITROGEN 18 mg/dL (7-20); CALCIUM 9.4 mg/dL (8.4-10.2); CARBON DIOXIDE 31 mmol/L (22-30); CHLORIDE 104 mmol/L (98-107); GLUCOSE 89 mg/dL (75-110)
[2017-08-22 06:19] LABS: CHOLESTEROL 158.88 mg/dL (0-200); TRIGLYCERIDES 77 mg/dL (<150)
[2017-08-22 06:27] LABS: FREE T4 (FREE THYROXINE) 1.28 ng/dL (0.78-2.19)
[2017-08-22 06:30] LABS: DIRECT LDL 89 mg/dL (<100)
[2017-08-22 06:41] LABS: THYROID STIMULATING HORMONE 1.39 uIU/mL (0.47-4.68)
[2017-08-22] MEDS ORDERED: FUROSEMIDE 40 MG TABLET PO SCH (08:00)
[2017-08-22] MEDS ORDERED: DIGOXIN 0.125 MG TABLET PO SCH (08:00)
[2017-08-22] MEDS ORDERED: CARVEDILOL PO SCH (10:00)
[2017-08-22] MEDS ORDERED: ASPIRIN 81 MG TABLET, CHEWABLE PO SCH (10:00)
[2017-08-22] MEDS ORDERED: MAGNESIUM OXIDE 400 MG TABLET PO SCH (10:00)
[2017-08-22] MEDS ORDERED: CARVEDILOL 12.5 MG TABLET PO SCH (10:00)
[2017-08-22] MEDS ORDERED: POTASSIUM CHLORIDE 10 MEQ TABLET.SA PO SCH (10:00)
[2017-08-22] MEDS ORDERED: ASPIRIN 325 MG TABLET PO SCH (10:00)
[2017-08-22 10:19] VITALS: BP 136/72
--- NOTE | 2017-08-22 13:08 | PDOC DISCHARGE SUMMARY ---
General - Admit/Disc Date/PCP Admission Date/Primary Care Provider: 08/21/17 17:56 Discharge Date: 08/22/17 - Discharge Diagnosis (1) TIA (transient ischemic attack) Is this a current diagnosis for this admission?: Yes Summary: Presented with left facial and left UE weakness. Has history of Afib on Xarelto. - Work up: CTA head and neck negative for stenoses, TTE without thrombus - Labs: lipid panel, TSH, and HgA1c wnl - Started on ASA and Lipitor for secondary stroke prevention - On day of discharge, at baseline. Ambulating without issues and neurologically at baseline. Outpatient plan - Script given for ASA 81mg and Lipitor 40mg qhs - Continue good BP control - Follow up with PCP (2) Atrial fibrillation Is this a current diagnosis for this admission?: Yes Summary: - Continue home Coreg and Xarelto; no medication changes at discharge (3) CHF (congestive heart failure) Is this a current diagnosis for this admission?: Yes Summary: TTE this admission: HFpEF with Grade II/IV DD, likely due to history of HTN and age - Continue current regimen - Not on GRAYSON-i currently, however BP's may not tolerate addition of second agent - Additional Information Resuscitation Status: Full Code Discharge Diet: Cardiac Discharge Activity: Activity As Tolerated Prescriptions: Aspirin [Davy Aspirin] 81 mg PO DAILY #30 tab.chew Atorvastatin Calcium [Lipitor 40 mg Tablet] 40 mg PO QHS #30 tablet Home Medications: Digoxin 125 mg PO QAM 11/30/14 Furosemide [Lasix] 40 mg PO QAM 11/30/14 Rivaroxaban [Xarelto] 15 mg PO QPM 11/30/14 Acetaminophen [Tylenol] 500 mg PO BID 08/23/15 Magnesium Oxide 2 tab PO DAILY 08/23/15 Potassium Chloride [K-Tab ER] 20 meq PO DAILY 08/23/15 Carvedilol [Coreg] 1 tab PO BID 08/30/15 Clonazepam [Klonopin 1 mg Tablet] 1 mg PO QHS PRN 08/30/15 Aspirin [Davy Aspirin] 81 mg PO DAILY #30 tab.chew 08/22/17 Atorvastatin Calcium [Lipitor 40 mg Tablet] 40 mg PO QHS #30 tablet 08/22/17 History of Present Illness Patient complains of: left hand weakness/numbness, left facial droop History of Present Illness: WILBERT J FARNELL is a 82 year old female with a PMH of atrial fibrillation on Xarelto, pulmonary hypertension, 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 Patient states that she was visiting a gravesite today and noticed that she started having trouble with holding things in her left hand. Her left hand felt numb at the time. Her family member noticed that her left side of her face appeared to droop and she became dysarthric. Patient's family brought her immediately to the emergency department. Soon after arriving the patient noticed that she was able to speak more clearly. Also described facial droop resolving and getting her feeling back in her left hand. Patient admits to being anxious and nervous about her past medical treatment. Patient states in 2011 she had a CVA with left-sided weakness. At that time she was significantly agitated and confused. Recovered with an extended stay in rehab. Denies any other CVAs or TIAs. Patient has a non-stenosed CTA head and neck study. She is in chronic Afib on Xarelto. Admitted to Hospitalist service for observation. Physical Exam Vital Signs: Temp Pulse Resp BP Pulse Ox 97.8 F 58 L 16 136/72 H 95 08/22/17 10:18 08/22/17 10:18 08/22/17 10:18 08/22/17 10:18 08/22/17 10:18 Intake & Output 08/21/17 08/22/17 08/23/17 06:59 06:59 06:59 Intake Total 310 437 Output Total 1000 Balance -690 437 Weight 70.8 kg General appearance: PRESENT: no acute distress, well-developed, well-nourished Mouth exam: PRESENT: moist, neck supple Neck exam: ABSENT: carotid bruit Respiratory exam: PRESENT: unlabored. ABSENT: tachypnea, wheezes Cardiovascular exam: PRESENT: irregular rhythm. ABSENT: tachycardia GI/Abdominal exam: PRESENT: soft. ABSENT: tenderness Neurological exam: PRESENT: alert, awake, oriented to person, oriented to place , oriented to time, oriented to situation, CN II-XII grossly intact, motor sensory deficit. ABSENT: aphasic Psychiatric exam: PRESENT: normal mood Results Laboratory Results: 08/22/17 04:41 08/22/17 04:41 08/22/17 08/22/17 08/22/17 04:41 04:41 04:41 WBC 7.3 RBC 4.20 Hgb 11.9 L Hct 36.2 MCV 86 MCH 28.2 MCHC 32.8 RDW 14.3 H Plt Count 201 Seg Neutrophils % 51.7 Lymphocytes % 35.2 Monocytes % 9.7 Eosinophils % 3.1 Basophils % 0.3 Absolute Neutrophils 3.8 Absolute Lymphocytes 2.6 Absolute Monocytes 0.7 Absolute Eosinophils 0.2 Absolute Basophils 0.0 Sodium 142.0 Potassium 5.0 Chloride 104 Carbon Dioxide 31 H Anion Gap 7 BUN 18 Creatinine 0.84 Est GFR ( Amer) > 60 Est GFR (Non-Af Amer) > 60 Glucose 89 Calcium 9.4 Magnesium 1.9 Triglycerides Cholesterol LDL Cholesterol Direct VLDL Cholesterol HDL Cholesterol TSH 1.39 Free T4 1.28 08/22/17 04:41 WBC RBC Hgb Hct MCV MCH MCHC RDW Plt Count Seg Neutrophils % Lymphocytes % Monocytes % Eosinophils % Basophils % Absolute Neutrophils Absolute Lymphocytes Absolute Monocytes Absolute Eosinophils Absolute Basophils Sodium Potassium Chloride Carbon Dioxide Anion Gap BUN Creatinine Est GFR ( Amer) Est GFR (Non-Af Amer) Glucose Calcium Magnesium Triglycerides 77 Cholesterol 158.88 LDL Cholesterol Direct 89 VLDL Cholesterol 15.0 HDL Cholesterol 43 TSH Free T4 Impressions: Chest X-Ray 08/21/17 00:00 IMPRESSION: Linear scarring/ atelectasis. Cardiac enlargement. Head CT 08/21/17 00:00 IMPRESSION: NORMAL BRAIN CT WITHOUT CONTRAST. EVIDENCE OF ACUTE STROKE: No Head CTA 08/21/17 14:06 IMPRESSION: NO CTA EVIDENCE OF STENOSIS OR ANEURYSM OF THE [place] OF [place]. Neck CTA 08/21/17 14:06 IMPRESSION: CALCIFIED AND NONCALCIFIED ATHEROSCLEROTIC PLAQUE WITHOUT SIGNIFICANT STENOSIS. NO DISSECTION. Qualifiers - * PATEINT BEING DISCHARGED WITH ANY OF THE FOLLOWING DIAGNOSIS?: No
[2017-08-22] MEDS ORDERED: RIVAROXABAN 15 MG TABLET PO SCH (18:00)
[2017-08-22] MEDS ORDERED: ATORVASTATIN CALCIUM 80 MG TABLET PO SCH (22:00)
== END 2017-08-22 10:47 | disposition home or self-care (01) ==
LOC: ER 13:39 → EH 17:56 → 3N 20:00
PROVIDERS: ADMIT Internal Medicine; ATTEND Internal Medicine
DX: G45.9 Transient cerebral ischemic attack, unspecified (principal); I11.0 Hypertensive heart disease with heart failure; I50.9 Heart failure, unspecified; J44.9 Chronic obstructive pulmonary disease, unspecified; I48.91 Unspecified atrial fibrillation; I27.20 Pulmonary hypertension, unspecified; F41.9 Anxiety disorder, unspecified; I69.354 Hemiplegia and hemiparesis following cerebral infarction affecting left non-dominant side; Z87.891 Personal history of nicotine dependence; Z79.01 Long term (current) use of anticoagulants
CPT/HCPCS: 93005; 99285; 96360; 36415 ×2; 84439; 82553; 82550; 80162; 83735; 84443; 85025 ×2; 85610; 85730; 80048; 80053; 81001; 84484; 83036; 80061; 83880; 93306; 71045; 70450; 70496; 70498; 93010; G0378 ×3; A9270 ×8; J7040

== ENCOUNTER → 2017-10-01 | Outpatient (CLI) | payer MEDICARE, OTHER ==
--- NOTE | 2017-10-01 14:25 | RADIOLOGY REPORT (SQ) ---
EXAM DESCRIPTION: MRI HEAD WITHOUT COMPLETED DATE/TIME: 10/01/2017 1:43 pm REASON FOR STUDY: TRANSIENT CEREBRAL ISCHEMIC ATTACK, UNSPECIFIED G45.9 TRANSIENT CEREBRAL ISCHEMIC ATTACK, UNSPECIFIED COMPARISON: 04/27/2013. TECHNIQUE: Multiplanar imaging includes non-contrasted T1, T2, FLAIR, and diffusion with ADC map seq uences. Images stored on PACS. LIMITATIONS: None. FINDINGS: ANATOMY: No anomalies. Normal vascular flow voids. Pituitary fossa normal. CSF SPACES: Atrophy induced prominence of ventricles and CSF spaces. CEREBRUM: High signal intensity lesions scattered throughout the white matter on FLAIR imaging with d istribution suggesting micro-vascular ischemic changes. No evidence of hemorrhage, mass, or extraaxi al fluid collection. POSTERIOR FOSSA: No signal alteration. No hemorrhage. No edema, masses or mass effect. Internal gaudencio tory canals, cerebello-pontine angles normal. Small amount of fluid left mastoids. DIFFUSION IMAGING: Negative for acute or sub-acute infarction. ORBITS: No masses. Globes normal. PARANASAL SINUSES: No fluid levels. Mucosa normal. OTHER: No other significant finding. IMPRESSION: ATROPHY AND CHRONIC MICRO-VASCULAR ISCHEMIC CHANGES. OTHERWISE NORMAL MRI OF THE BRAIN W ITHOUT INTRAVENOUS GADOLINIUM CONTRAST. EVIDENCE OF ACUTE STROKE: NO. TECHNICAL DOCUMENTATION: JOB ID: [id number] [employer]- All Rights Reserved Reading location - IP/workstation name: Unknown
== END ==
LOC: RAD 12:45
PROVIDERS: ATTEND Nurse Practitioner
DX: G45.9 Transient cerebral ischemic attack, unspecified (principal)
CPT/HCPCS: 70551

== ENCOUNTER 2017-10-02 18:07 | Emergency (ER) | payer MEDICARE, OTHER ==
[2017-10-02] MEDS ORDERED: ONDANSETRON 4 MG TAB.RAPDIS PO ONE (20:02)
--- NOTE | 2017-10-02 20:04 | ER Document Report ---
ED Medical Screen (RME) - General Chief Complaint: Anxiety Stated Complaint: NAUSEA Time Seen by Provider: 10/02/17 19:55 Notes: RAPID MEDICAL EVALUATION DISCLOSURE I have seen this patient as part of a Rapid Medical Evaluation and, if applicable, placed any initially appropriate orders. The patient will be seen and fully evaluated, including a full history and physical exam, by a provider ( in Main ED or Fast Track) when a room becomes available. 82-year-old female here with complaints of headaches palpitations nausea and feeling jittery over the past 4 days. She has not had chest pain discomfort or shortness of breath with these symptoms. The symptoms have been progressively worsening and this is what brought her in. She was taken off of her clonazepam september and has been weaning herself off by using the 3 pills that she had left over by cutting them into smaller pieces. She thinks this is why she is having the symptoms. She does not know why her PCP took her off of the clonazepam. EXAM Clear to auscultation bilaterally Regular rate with irregularly irregular rhythm (has history of A. fib) Does not appear anxious She is quite jovial TRAVEL OUTSIDE OF THE [place] IN LAST 30 DAYS: No - Related Data Allergies/Adverse Reactions: oxycodone HCl [From Percodan] Allergy (Verified 12/01/14 03:12) oxycodone terephthalate [From Percodan] Allergy (Verified 12/01/14 03:12) Past Medical History - Past Medical History Cardiac Medical History: Reports: Hx Atrial Fibrillation, Hx Hypertension Pulmonary Medical History: Reports: Hx COPD Denies: Hx Tuberculosis Renal/ Medical History: Reports: Hx Kidney Stones. Denies: Hx Peritoneal Dialysis Musculoskeltal Medical History: Reports Hx Arthritis Psychiatric Medical History: Reports: Hx Depression Past Surgical History: Reports: Hx Appendectomy, Hx Cholecystectomy, Hx Hysterectomy. Denies: Hx Pacemaker - Immunizations Hx Diphtheria, Pertussis, Tetanus Vaccination: Yes History of Influenza Vaccine for 02/2017 - 07/2017 Season: No Physical Exam - Vital signs Vitals: Temp Pulse Resp BP Pulse Ox 98.5 F 80 16 164/86 H 96 10/02/17 18:34 10/02/17 18:34 10/02/17 18:34 10/02/17 18:34 10/02/17 18:34 Course - Vital Signs Vital signs: Temp Pulse Resp BP Pulse Ox 98.5 F 80 16 164/86 H 96 10/02/17 18:34 10/02/17 18:34 10/02/17 18:34 10/02/17 18:34 10/02/17 18:34 Doctor's Discharge - Discharge Instructions: Anxiety ([facility])
--- NOTE | 2017-10-02 20:48 | RADIOLOGY REPORT (SQ) ---
EXAM DESCRIPTION: CHEST 2 VIEWS COMPLETED DATE/TIME: 10/02/2017 8:34 pm REASON FOR STUDY: palpitations COMPARISON: Chest x-ray 08/23/2015. EXAM PARAMETERS: NUMBER OF VIEWS: two views TECHNIQUE: Digital Frontal and Lateral radiographic views of the chest acquired. RADIATION DOSE: NA LIMITATIONS: none FINDINGS: LUNGS AND PLEURA: Mild bibasilar atelectasis. No pleural effusion or pneumothorax. MEDIASTINUM AND HILAR STRUCTURES: No masses or contour abnormalities. HEART AND VASCULAR STRUCTURES: The heart is mildly enlarged. There is mild vascular congestion. BONES: Degenerative changes at the spine. HARDWARE: None in the chest. IMPRESSION: Mild cardiomegaly and mild vascular congestion. Mild bibasilar atelectasis. TECHNICAL DOCUMENTATION: JOB ID: [id number] [employer]- All Rights Reserved Reading location - IP/workstation name: [email or web address]
[2017-10-02 21:09] LABS: ABSOLUTE EOSINOPHILS # (AUTO) 0.1 10^3/uL (0.0-0.6); ABSOLUTE LYMPHOCYTES (AUTO) 2.5 10^3/uL (0.5-4.7); ABSOLUTE MONOCYTES (AUTO) 0.7 10^3/uL (0.1-1.4); BASOPHILS % (AUTO) 0.3 % (0-2); HEMATOCRIT 39.7 % (36.0-47.0); HEMOGLOBIN 13.1 g/dL (12.0-15.5); LYMPHOCYTES % (AUTO) 26.9 % (13-45); MEAN CORPUSCULAR HEMOGLOBIN 28.1 pg (27.0-33.4); MEAN CORPUSCULAR VOLUME 85 fl (80-97); MONOCYTES % (AUTO) 7.1 % (3-13); PLATELET COUNT 224 10^3/uL (150-450); RED BLOOD COUNT 4.66 10^6/uL (3.72-5.28); RED CELL DISTRIBUTION WIDTH 13.7 % (11.5-14.0); SEGMENTED NEUTROPHILS % (AUTO) 64.7 % (42-78); TOTAL CELLS COUNTED % (AUTO) 100 %; WHITE BLOOD COUNT 9.3 10^3/uL (4.0-10.5)
[2017-10-02] MEDS ORDERED: LORAZEPAM 1 MG TABLET PO ONE (21:22)
--- NOTE | 2017-10-02 21:24 | ER Document Report ---
ED General - General Chief Complaint: Anxiety Stated Complaint: NAUSEA Time Seen by Provider: 10/02/17 19:55 Notes: Patient is an 82-year-old female comes emergency department for chief complaint of 3-4 days of feeling nauseated, jittery, feeling some palpitations, and not being able to sleep. She also states that she developed some pain in her upper abdomen. She denies vomiting, she had a normal bowel movement earlier today. She denies chest pain or shortness of breath. She denies difficulty lying flat. She has a history of atrial fibrillation, COPD, hypertension, depression , she is on Xarelto, Coreg, digoxin, and she was just taken off of her Klonopin which she has taken for 30 years. She thinks her symptoms are from being off the Klonopin. Only reported symptoms at this time are mild nausea and some upper abdominal tenderness. TRAVEL OUTSIDE OF THE [place] IN LAST 30 DAYS: No - Related Data Allergies/Adverse Reactions: oxycodone HCl [From Percodan] Allergy (Verified 10/02/17 20:08) oxycodone terephthalate [From Percodan] Allergy (Verified 10/02/17 20:08) Past Medical History - General Information source: Patient - Social History Smoking Status: Never Smoker Chew tobacco use (# tins/day): No Frequency of alcohol use: None Drug Abuse: None Lives with: Family Family History: Reviewed & Not Pertinent Patient has suicidal ideation: No Patient has homicidal ideation: No - Past Medical History Cardiac Medical History: Reports: Hx Atrial Fibrillation, Hx Congestive Heart Failure, Hx Hypertension Pulmonary Medical History: Reports: Hx COPD Denies: Hx Tuberculosis Renal/ Medical History: Reports: Hx Kidney Stones. Denies: Hx Peritoneal Dialysis Musculoskeltal Medical History: Reports Hx Arthritis Psychiatric Medical History: Reports: Hx Depression Past Surgical History: Reports: Hx Appendectomy, Hx Cholecystectomy, Hx Hysterectomy, Hx Kidney (Renal Surgery) - Partial kidney removal. Denies: Hx Pacemaker - Immunizations Hx Diphtheria, Pertussis, Tetanus Vaccination: Yes Hx Pneumococcal Vaccination: 05/08/12 Review of Systems - Review of Systems Constitutional: See HPI EENT: No symptoms reported Cardiovascular: No symptoms reported Respiratory: No symptoms reported Gastrointestinal: See HPI Genitourinary: No symptoms reported Female Genitourinary: No symptoms reported Musculoskeletal: No symptoms reported Skin: No symptoms reported Hematologic/Lymphatic: No symptoms reported Neurological/Psychological: See HPI Physical Exam - Vital signs Vitals: Temp Pulse Resp BP Pulse Ox 98.5 F 80 16 164/86 H 96 10/02/17 18:34 10/02/17 18:34 10/02/17 18:34 10/02/17 18:34 10/02/17 18:34 Interpretation: Normal - General General appearance: Appears well, Alert - HEENT Head: Normocephalic, Atraumatic Eyes: Normal Pupils: PERRL - Respiratory Respiratory status: No respiratory distress Chest status: Nontender Breath sounds: Normal Chest palpation: Normal - Cardiovascular Rhythm: Irregularly irregular Heart sounds: Normal auscultation, S1 appreciated, S2 appreciated Murmur: No Normal capillary refill: Yes - Abdominal Inspection: Normal Distension: No distension Bowel sounds: Normal Tenderness: Tender - Tender in the mid to upper abdomen, this is reproducible, no overt guarding, no rebound tenderness, no rigidity Organomegaly: No organomegaly - Back Back: Normal, Nontender. No: Tender - Extremities General upper extremity: Normal inspection, Nontender, Normal color, Normal ROM , Normal temperature General lower extremity: Normal inspection, Nontender, Normal color, Normal ROM , Normal temperature, Normal weight bearing. No: Dawn's sign - Neurological Neuro grossly intact: Yes Cognition: Normal Orientation: AAOx4 [place] Coma Scale Eye Opening: Spontaneous [place] Coma Scale Verbal: Oriented [place] Coma Scale Motor: Obeys Commands [place] Coma Scale Total: 15 Speech: Normal Motor strength normal: LUE, RUE, LLE, RLE Sensory: Normal - Psychological Associated symptoms: Normal affect, Normal mood - Skin Skin Temperature: Warm Skin Moisture: Dry Skin Color: Normal Course - Re-evaluation Re-evalutation: CBC unremarkable, chemistry unremarkable, patient has mid abdominal tenderness on exam which is reproducible, no overt guarding but she does wince. She reports nausea. She does have a history of atrial fibrillation. Because of her age, history of atrial fibrillation, and abdominal pain on exam discussion was made for CTA of the abdomen, after discussion this was performed. This does not show any acute findings. There are a few soft rales on exam, mild pulmonary vascular congestion on x-ray, however patient denies any shortness of breath, I laid her flat on the bed and she had no signs of distress or discomfort, she had no hypoxia, tachypnea. Patient insists she does not feel short of breath. She states she feels normal. Remaining workup unremarkable except for elevated specific gravity in the urine. Patient was medicated with Lorazepam because of her suspected benzodiazepine withdrawal, afterwards her nausea, jitteriness, and general feeling unwell resolved. She is smiling and well-appearing. Patient already has a scheduled appointment in about a week with a provider again where the plan is to place her back on Klonopin. Patient states she is not sure why she was weaned off Klonopin. Patient provided with Zantac as well, discussed this, she has mid upper abdominal pain with unremarkable scan, she states she eats "terribly" and admits to having frequent upper abdominal upset. Discussed with patient and family at bedside. Patient will be provided with a small amount of Klonopin to avoid withdrawals and maintain her previous dose, discussed return precautions in detail, patient and family state satisfaction and agreement. - Vital Signs Vital signs: Temp Pulse Resp BP Pulse Ox 97.9 F 91 16 146/75 H 93 10/03/17 00:28 10/03/17 00:28 10/03/17 00:28 10/03/17 00:28 10/03/17 00:28 - Laboratory Result Diagrams: 10/02/17 20:50 10/02/17 20:50 Laboratory results interpreted by me: 10/02/17 10/02/17 20:50 23:34 AST 40 H Ur Leukocyte Esterase SMALL H Discharge - Discharge Clinical Impression: Nausea Medication withdrawal Qualifiers: Substance type: sedative, hypnotic or anxiolytic Qualified Code(s): F13.239 - Sedative, hypnotic or anxiolytic dependence with withdrawal, unspecified Abdominal pain Qualifiers: Abdominal location: generalized Qualified Code(s): R10.84 - Generalized abdominal pain Condition: Stable Disposition: HOME, SELF-CARE Instructions: Anxiety ([facility]) Additional Instructions: Your workup tonight did not show any concerning abnormalities. Your symptoms are most likely from rapidly coming off of benzodiazepines although this is not definite. You have been prescribed your regular medication, take as directed, follow-up with primary care for additional evaluation, management, and prescription. Return if you worsen including returned abdominal pain, nausea, vomiting, fever , passing out, chest pain, or any other concerning or worsening symptoms. Prescriptions: Clonazepam [Klonopin 1 mg Tablet] 1 mg PO ASDIR PRN #14 tablet PRN Reason: Ranitidine HCl [Zantac 150 mg Tablet] 150 mg PO DAILY #20 tablet Referrals: ANIBAL JOHNSON NP [Primary Care Provider] - Follow up as needed
[2017-10-02 21:41] LABS: ANION GAP 13 (5-19); BLOOD UREA NITROGEN 13 mg/dL (7-20); CALCIUM 9.9 mg/dL (8.4-10.2); CARBON DIOXIDE 27 mmol/L (22-30); CHLORIDE 102 mmol/L (98-107); GLUCOSE 105 mg/dL (75-110); PHOSPHORUS 3.8 mg/dL (2.5-4.5); POTASSIUM 4.1 mmol/L (3.6-5.0); SODIUM 142.2 mmol/L (137-145)
--- NOTE | 2017-10-02 21:41 | EKG REPORT ---
SEVERITY:- ABNORMAL ECG - ATRIAL FIBRILLATION LEFT ANTERIOR FASCICULAR BLOCK ANTERIOR INFARCT, OLD : Confirmed by: Taiwo Crowder MD 02-Oct-2017 21:41:22
[2017-10-02 22:26] LABS: ALANINE AMINOTRANSFERASE 22 U/L (9-52); ALBUMIN 4.2 g/dL (3.5-5.0); ALKALINE PHOSPHATASE 96 U/L (38-126); ASPARTATE AMINO TRANSFERASE 40 U/L (14-36); BILIRUBIN,DIRECT 0.4 mg/dL (0.0-0.4); BILIRUBIN,TOTAL 0.9 mg/dL (0.2-1.3); DIGOXIN 1.14 ng/mL (0.8-2.0); LIPASE 38.6 U/L (23-300); TOTAL PROTEIN 7.9 g/dL (6.3-8.2)
--- NOTE | 2017-10-02 23:39 | RADIOLOGY REPORT (SQ) ---
EXAM DESCRIPTION: CT ABDOMEN PELVIS WITHOUT THEN WITH IV CONTRAST CLINICAL HISTORY: 82 years Female, abd pain, nausea, afib Comparison: None. Technique: IV contrast. Coronal and sagittal reformat. This exam was performed according to our departmental dose-optimization program, which includes automated exposure control, adjustment of the mA and/or kV according to patient size and/or use of iterative reconstruction technique.[facility]: Dose Right [facility]: CareDose [facility]: Dose Right [facility]: Teradose 4D [facility]: LinPrim LIMITATIONS: None. Findings: Minimal pericardial fluid. Moderate coronary arterial calcification. Colonic diverticulosis. Atherosclerosis. Small calcified splenic granuloma. Small atelectasis or scar at the left lower lobe. Likely benign left renal cyst. 0.3 cm right renal stone/atherosclerotic calcification. Cholecystectomy clips. 0.9 cm common bile duct diameter; no intrahepatic ductal dilation. Fat replacement of the pancreatic head. Moderate L4 and T12 anterior compression deformity. Mild L5 anterior vertebral compression deformity. No ascites. Inferior thorax, liver, spleen, adrenals, renal system, gastrointestinal tract, pelvic organs, lymphatics, vasculature, and musculoskeleton appear otherwise unremarkable. IMPRESSION: 1. Moderate T12 and L4 vertebral compression deformity, indeterminate age. 2. Else, no acute findings in the abdomen and pelvis.
[2017-10-03 00:21] LABS: APPEARANCE,URINE CLEAR; BILIRUBIN,URINE NEGATIVE (NEGATIVE); COLOR,URINE YELLOW; GLUCOSE, URINE NEGATIVE (NEGATIVE); KETONES,URINE NEGATIVE (NEGATIVE); LEUKOCYTE ESTERASE,URINE SMALL (NEGATIVE); NITRITE,URINE NEGATIVE (NEGATIVE); PROTEIN,URINE NEGATIVE (NEGATIVE); URINE SPECIFIC GRAVITY 1.056; UROBILINOGEN,URINE NEGATIVE mg/dL (<2.0)
[2017-10-03 00:32] VITALS: BP 146/75
== END 2017-10-03 00:32 | disposition home or self-care (01) ==
LOC: ER 18:07
DX: F13.239 Sedative, hypnotic or anxiolytic dependence with withdrawal, unspecified (principal); R10.84 Generalized abdominal pain; R11.0 Nausea; F41.9 Anxiety disorder, unspecified; R00.2 Palpitations; R10.10 Upper abdominal pain, unspecified; J44.9 Chronic obstructive pulmonary disease, unspecified; I10 Essential (primary) hypertension; Z79.01 Long term (current) use of anticoagulants; Z79.899 Other long term (current) drug therapy
CPT/HCPCS: 93005; 99284; 36415; 80162; 83690; 83735; 84100; 84443; 85025; 80076; 80048; 81001; 84484; 71046; 74174; 93010; A9270 ×2; S0119

== ENCOUNTER 2018-09-15 14:29 | Emergency (ER) | payer MEDICARE, OTHER ==
[2018-09-15 14:48] LABS: INTERNATIONAL RATION (INR) 1.12
--- NOTE | 2018-09-15 14:50 | RADIOLOGY REPORT (SQ) ---
EXAM DESCRIPTION: CT HEAD WITHOUT COMPLETED DATE/TIME: 09/15/2018 2:39 pm REASON FOR STUDY: bed mp stroke alert COMPARISON: 11/13/2017 TECHNIQUE: Axial images acquired through the brain without intravenous contrast. Images reviewed wi th bone, brain and subdural windows. Additional sagittal and coronal reconstructions were generated. Images stored on PACS. All CT scanners at this facility use dose modulation, iterative reconstruction, and/or weight based d osing when appropriate to reduce radiation dose to as low as reasonably achievable (ALARA). [facility]: Dose Right [facility]: CareDose [facility]: Dose Right [facility]: Teradose 4D [facility]: [employer] RADIATION DOSE: 487 mGy cm LIMITATIONS: None. FINDINGS: VENTRICLES: Normal size and contour. CEREBRUM: No masses. No hemorrhage. No midline shift. No evidence for acute infarction. Normal gra y/white matter differentiation. No areas of low density in the white matter. CEREBELLUM: No masses. No hemorrhage. No alteration of density. No evidence for acute infarction. EXTRAAXIAL SPACES: No fluid collections. No masses. ORBITS AND GLOBE: No intra- or extraconal masses. Normal contour of globe without masses. CALVARIUM: No fracture. PARANASAL SINUSES: No fluid or mucosal thickening. SOFT TISSUES: No mass or hematoma. OTHER: No other significant finding. IMPRESSION: No CT evidence of acute stroke or hemorrhage. EVIDENCE OF ACUTE STROKE: NO. Findings reported by telephone to Dr. Francis, 1442 hours, 09/15/2018 COMMENT: Quality ID # [id number]: Final reports with documentation of one or more dose reduction techniques (e.g., Automated exposure control, adjustment of the mA and/or kV according to patient size, use of iterative reconstruction technique) TECHNICAL DOCUMENTATION: JOB ID: [id number] [employer]- All Rights Reserved Reading location - IP/workstation name: [email or web address]
[2018-09-15 14:53] LABS: ABSOLUTE EOSINOPHILS # (AUTO) 0.1 10^3/uL (0.0-0.6); ABSOLUTE LYMPHOCYTES (AUTO) 2.2 10^3/uL (0.5-4.7); ABSOLUTE MONOCYTES (AUTO) 0.5 10^3/uL (0.1-1.4); ABSOLUTE NEUT (AUTO) 4.7 10^3/uL (1.7-8.2); BASOPHILS % (AUTO) 0.3 % (0-2); EOSINOPHILS % (AUTO) 0.9 % (0-6); HEMATOCRIT 37.4 % (36.0-47.0); HEMOGLOBIN 12.4 g/dL (12.0-15.5); LYMPHOCYTES % (AUTO) 29.6 % (13-45); MEAN CORPUSCULAR HEMOGLOBIN 28.4 pg (27.0-33.4); MEAN CORPUSCULAR HGB CONC 33.1 g/dL (32.0-36.0); MEAN CORPUSCULAR VOLUME 86 fl (80-97); MONOCYTES % (AUTO) 7.3 % (3-13); PLATELET COUNT 214 10^3/uL (150-450); RED BLOOD COUNT 4.36 10^6/uL (3.72-5.28); RED CELL DISTRIBUTION WIDTH 15.4 % (11.5-14.0); SEGMENTED NEUTROPHILS % (AUTO) 61.9 % (42-78); TOTAL CELLS COUNTED % (AUTO) 100 %; WHITE BLOOD COUNT 7.5 10^3/uL (4.0-10.5)
--- NOTE | 2018-09-15 14:53 | RADIOLOGY REPORT (SQ) ---
EXAM DESCRIPTION: CHEST SINGLE VIEW COMPLETED DATE/TIME: 09/15/2018 2:42 pm REASON FOR STUDY: bed mp stroke alert COMPARISON: Chest films 10/02/2017, 08/21/2017 EXAM PARAMETERS: NUMBER OF VIEWS: One view. TECHNIQUE: Single frontal radiographic view of the chest acquired. RADIATION DOSE: NA LIMITATIONS: None. FINDINGS: LUNGS AND PLEURA: Stable scarring or atelectasis in the right lung near the minor fissure, and lingula. No pleural effusions. No pneumothorax. MEDIASTINUM AND HILAR STRUCTURES: No masses. Contour normal. HEART AND VASCULAR STRUCTURES: Stable cardiomegaly BONES: No acute findings. HARDWARE: None in the chest. OTHER: No other significant finding. IMPRESSION: Stable cardiomegaly and bandlike atelectasis or scarring in both lungs. TECHNICAL DOCUMENTATION: JOB ID: [id number] [employer]- All Rights Reserved Reading location - IP/workstation name: [email or web address]
[2018-09-15 15:13] LABS: ALANINE AMINOTRANSFERASE 37 U/L (9-52); ALBUMIN 3.9 g/dL (3.5-5.0); ALKALINE PHOSPHATASE 102 U/L (38-126); ANION GAP 6 (5-19); ASPARTATE AMINO TRANSFERASE 36 U/L (14-36); BILIRUBIN,DIRECT 0.4 mg/dL (0.0-0.4); BILIRUBIN,TOTAL 1.5 mg/dL (0.2-1.3); BLOOD UREA NITROGEN 18 mg/dL (7-20); CALCIUM 9.5 mg/dL (8.4-10.2); CARBON DIOXIDE 31 mmol/L (22-30); CHLORIDE 101 mmol/L (98-107); CREATINE KINASE 37 U/L (30-135); GLUCOSE 84 mg/dL (75-110); POTASSIUM 5.2 mmol/L (3.6-5.0); SODIUM 137.8 mmol/L (137-145); TOTAL PROTEIN 7.6 g/dL (6.3-8.2)
[2018-09-15 15:16] VITALS: BP 149/74
[2018-09-15 15:20] LABS: CREATINE KINASE MB 0.37 ng/mL (<4.55)
[2018-09-15 15:22] LABS: TROPONIN I < 0.012 ng/mL
--- NOTE | 2018-09-15 16:02 | ER Document Report ---
ED Neuro Symptoms/Deficit - General Stated Complaint: POSSIBLE STROKE Time Seen by Provider: 09/15/18 15:42 Primary Care Provider: ANIBAL RICARDO NP [Primary Care Provider] - Follow up tomorrow Notes: Patient was conversing with another person about 1 PM today when she started having trouble pronouncing words including pronounce some words. She was thinking correctly and did not have any other neurologic findings or symptoms, but just could not pronounce words. Patient has had 3 previous TIAs. Each of them involved her lack of use of her left arm. That is not present today. When she came to the emergency department by EMS on her way to CT scan, I evaluated the patient and she seemed a bit confused and said she still felt she was having trouble with her speech. After her CT scan and she was back in her room, her symptoms seem to have totally subsided. She and her son who is presents today that her speech is back to normal and she seems to be acting normally in every way. Patient is on Eliquis, but is supposed to be taking 2.5 mg twice a day and she is only been taking it once a day. She has a history of atrial fibril lation. She is on digoxin and carvedilol TRAVEL OUTSIDE OF THE [place] IN LAST 30 DAYS: No - HPI Patient complains to provider of: Speech Impairment - Related Data Allergies/Adverse Reactions: oxycodone HCl [From Percodan] Allergy (Verified 09/16/18 17:49) oxycodone terephthalate [From Percodan] Allergy (Verified 09/16/18 17:49) Past Medical History - Social History Smoking Status: Unknown if Ever Smoked Family History: Reviewed & Not Pertinent Patient has suicidal ideation: No Patient has homicidal ideation: No - Past Medical History Cardiac Medical History: Reports: Hx Atrial Fibrillation, Hx Congestive Heart Failure, Hx Hypertension Pulmonary Medical History: Reports: Hx COPD Denies: Hx Tuberculosis Renal/ Medical History: Reports: Hx Kidney Stones Musculoskeletal Medical History: Reports Hx Arthritis Psychiatric Medical History: Reports: Hx Depression Past Surgical History: Reports: Hx Appendectomy, Hx Cholecystectomy, Hx Hysterectomy, Hx Kidney (Renal Surgery) - Partial kidney removal - Immunizations Hx Diphtheria, Pertussis, Tetanus Vaccination: Yes Hx Pneumococcal Vaccination: 05/08/12 Review of Systems - Review of Systems Notes: REVIEW OF SYSTEMS: CONSTITUTIONAL : Denies fever. EENT: Denies eye, ear, nose or mouth or throat pain or other symptoms. CARDIOVASCULAR: Denies chest pain. RESPIRATORY: Denies cough, chest congestion, or shortness of breath. GASTROINTESTINAL: Denies abdominal pain or nausea, vomiting, or diarrhea. GENITOURINARY: Denies difficulty or painful urinating, urinary frequency, blood in urine. MUSCULOSKELETAL: Denies back or neck pain. Denies joint pain or swelling. SKIN: Denies rash or skin lesions. NEUROLOGICAL: Only neurologic deficit patient had was speech difficulty, which is totally resolved at this time. Otherwise her neurologic exam is normal. Denies LOC or altered mental status. Denies headache. Denies sensory loss or motor deficits. ALL OTHER SYSTEMS REVIEWED AND NEGATIVE. Physical Exam - Vital signs Vitals: Pulse Resp BP Pulse Ox 66 17 136/84 H 93 09/15/18 14:35 09/15/18 14:35 09/15/18 14:35 09/15/18 14:35 Interpretation: Normal - Notes Notes: PHYSICAL EXAMINATION: GENERAL: Well-appearing, in no acute distress. Vital signs are all normal. HEAD: Atraumatic, normocephalic. EYES: Pupils equal round and reactive to light, extraocular movements intact. ENT: oropharynx clear without exudates. Moist mucous membranes. NECK: Normal range of motion, supple. LUNGS: Breath sounds clear and equal bilaterally. HEART: Regular rate and rhythm without murmurs. ABDOMEN: Soft, nontender. No guarding or rebound. No masses. BACK: No tenderness throughout entire back. EXTREMITIES: Normal range of motion without pain. NEUROLOGICAL: Normal speech, normal gait. Patient is able to walk all around the examining room and in the adjacent hallway. Normal sensory, motor, and reflex exams. Awake, alert, and oriented x3. Cranial nerves normal. PSYCH: Normal mood, normal affect. SKIN: Warm, dry, no rashes. Course - Re-evaluation Re-evalutation: 09/15/18 18:14 I discussed the patient's condition and findings with her primary care provider, nurse practitioner Haleigh. The patient wishes to go home. Her son who is visiting from out of town thinks the patient is safe to go home and they have been through this on 3 prior occasions and understand there is some risks to her going home but feel they are willing to take that risk. Ms. Ricardo confirmed that the patient is supposed to be on Eliquis twice a day and patient and her son was made aware of that. I expressed question about the patient's heart rate being 53 with her atrial fibrillation. We agreed that the patient would follow-up with Mary Ellen Bisi [address] [address] morning at 8:00 in the morning and she would look at her heart medications which include digoxin 125 mcg daily and carvedilol 25 mg twice a day as possible causes for her to have a bradycardia. Patient understood and said that it would be difficult for them to make it to her office at 8:00 because the patient just does not get going very early in the morning. I told him to at least call Ms. Navarrete's office at 8 AM with an update of how she is doing and so that everybody is aware of what is happening. 09/15/18 18:18 Patient's digoxin level came back at 2.16 which is just slightly above the upper range of normal and therapeutic at 2.0. I do not believe that this needs to be changed at this time. - Vital Signs Vital signs: Temp Pulse Resp BP Pulse Ox 66 16 149/74 H 93 09/15/18 15:00 09/15/18 15:16 09/15/18 15:01 09/15/18 15:01 - Laboratory Result Diagrams: 09/15/18 14:08 09/15/18 14:08 Laboratory results interpreted by me: 09/15/18 09/15/18 09/15/18 14:08 14:08 14:08 RDW 15.4 H Potassium 5.2 H Carbon Dioxide 31 H Est GFR (Non-Af Amer) 57 L Total Bilirubin 1.5 H Digoxin 2.16 H* - Diagnostic Test Radiology reviewed: Image reviewed, Reports reviewed - CT scan was normal. Patient does not have any evidence of a stroke on the CT scan. Discharge - Discharge Clinical Impression: TIA (transient ischemic attack) Condition: Stable Disposition: HOME, SELF-CARE Additional Instructions: Transient Ischemic Attack You have been diagnosed as having a transient ischemic attack (TIA). This is caused when an artery to the brain has been temporarily blocked. It can result in visual changes, difficulty with speech, and weakness or numbness -- usually limited to one side of the body. TIA symptoms usually resolve within an hour, but a TIA is serious, as it may be a warning sign of an impending stroke. To prevent further episodes, you may be placed on medication to reduce the possibility that your platelets will aggregate and form blood clots in the arteries that supply the brain. Usually, this includes aspirin and sometimes other platelet inhibitors. Further evaluation is often necessary to make an exact diagnosis as to where these blood clots are originating, and if anything else needs to be done to correct the problem. Call the physician or go to the emergency room if episodes occur with increasing frequency. If symptoms occur that don't go away within a few minutes, call 911. NORMAL EXAM AND WORKUP: At this time, your examination and workup show no significant abnormality. No significant abnormal physical findings were noted. All laboratory, EKG, and imaging (x-ray, CT scans, ultrasound) studies that were ordered show no significant abnormality. Although your examination and all studies that were ordered showed no significant abnormal finding, there are no examinations and no studies that are 100% accurate. There is always the possibility that some abnormality could exist and not be detected with physical examination or within the limits and capabilities of laboratory and other studies. You should return or follow up as you were instructed on your visit today for further evaluation if your symptoms do not resolve. You should be taking your Eliquis twice a day, different than you have been taking. Continue all of your other medications as before. You have an appointment to see Ms. Ricardo at 8 AM tomorrow morning. If you are doing well in do not think you need to be seen, call their office and let them know that she will not be there at that time. We all know and agree that there is some small risk to sending you home, but since you are symptom-free and ambulatory and your CT scan is normal, I think it is a reasonable approach. You have been through this 3 previous times, twice being sent home without hospitalization and did well. Hopefully that will be the outcome this time as well. FOLLOW-UP CARE: If you have been referred to a physician for follow-up care, call the physicians office for an appointment as you were instructed or within the next two days. If you experience worsening or a significant change in your symptoms, notify the physician immediately or return to the Emergency Department at any t [facility] for re-evaluation. Referrals: ANIBAL RICARDO NP [Primary Care Provider] - Follow up tomorrow
--- NOTE | 2018-09-15 18:59 | EKG REPORT ---
SEVERITY:- ABNORMAL ECG - ATRIAL FIBRILLATION LAD, CONSIDER LAFB OR INFERIOR INFARCT CONSIDER ANTEROSEPTAL INFARCT : Confirmed by: Taiwo Crowder MD 15-Sep-2018 18:59:04
== END 2018-09-15 16:00 | disposition home or self-care (01) ==
LOC: ER 14:29
DX: G45.9 Transient cerebral ischemic attack, unspecified (principal); R47.89 Other speech disturbances; I48.91 Unspecified atrial fibrillation; T45.516A Underdosing of anticoagulants, initial encounter; Z91.14 Patient's other noncompliance with medication regimen; Z79.01 Long term (current) use of anticoagulants; Z79.899 Other long term (current) drug therapy; I10 Essential (primary) hypertension; J44.9 Chronic obstructive pulmonary disease, unspecified; Z88.5 Allergy status to narcotic agent
CPT/HCPCS: 36415; 70450; 71045; 80053; 80162; 82550; 82553; 82962; 84484; 85025; 85610; 85730; 93005; 93010; 99285

== ENCOUNTER 2018-09-30 15:08 | Emergency (ER) | payer MEDICARE, OTHER ==
[2018-09-30] MEDS ORDERED: ACETAMINOPHEN 325 MG TABLET PO ONE (15:30)
[2018-09-30 15:31] VITALS: BP 156/72
--- NOTE | 2018-09-30 15:50 | RADIOLOGY REPORT (SQ) ---
EXAM DESCRIPTION: CT HEAD WITHOUT COMPLETED DATE/TIME: 09/30/2018 3:30 pm REASON FOR STUDY: fall on blood thinners COMPARISON: CT brain 09/16/2018 TECHNIQUE: Axial images acquired through the brain without intravenous contrast. Images reviewed wi th bone, brain and subdural windows. Additional sagittal and coronal reconstructions were generated. Images stored on PACS. All CT scanners at this facility use dose modulation, iterative reconstruction, and/or weight based d osing when appropriate to reduce radiation dose to as low as reasonably achievable (ALARA). [facility]: Dose Right [facility]: CareDose [facility]: Dose Right [facility]: Teradose 4D [facility]: [place] RADIATION DOSE: CT Rad equipment meets quality standard of care and radiation dose reduction techniq ues were employed. CTDIvol: 53.2 mGy. DLP: 1070 mGy-cm. mGy. LIMITATIONS: None. FINDINGS: VENTRICLES: Normal size and contour. CEREBRUM: No masses. No hemorrhage. No midline shift. No evidence for acute infarction. Normal gra y/white matter differentiation. No areas of low density in the white matter. CEREBELLUM: No masses. No hemorrhage. No alteration of density. No evidence for acute infarction. EXTRAAXIAL SPACES: No fluid collections. No masses. ORBITS AND GLOBE: No intra- or extraconal masses. Normal contour of globe without masses. CALVARIUM: No fracture. PARANASAL SINUSES: No fluid or mucosal thickening. SOFT TISSUES: Midline frontal scalp hematoma without underlying skull fracture or acute intracranial hemorrhage. OTHER: No other significant finding. IMPRESSION: Midline frontal scalp hematoma without underlying skull fracture or acute intracranial h emorrhage EVIDENCE OF ACUTE STROKE: NO. COMMENT: Quality ID # [id number]: Final reports with documentation of one or more dose reduction techniques (e.g., Automated exposure control, adjustment of the mA and/or kV according to patient size, use of iterative reconstruction technique) TECHNICAL DOCUMENTATION: JOB ID: [id number] [employer]- All Rights Reserved Reading location - IP/workstation name: [email or web address]
--- NOTE | 2018-09-30 15:53 | RADIOLOGY REPORT (SQ) ---
EXAM DESCRIPTION: CT CERVICAL SPINE WITHOUT COMPLETED DATE/TIME: 09/30/2018 3:30 pm REASON FOR STUDY: fall on blood thinners COMPARISON: CT angio neck 08/21/2017 CT brain same date CT chest 08/23/2015 TECHNIQUE: Axial images acquired through the cervical spine without intravenous contrast. Images re viewed with lung, soft tissue and bone windows. Reconstructed coronal and sagittal MPR images review ed. Images stored on PACS. All CT scanners at this facility use dose modulation, iterative reconstruction, and/or weight based d osing when appropriate to reduce radiation dose to as low as reasonably achievable (ALARA). [facility]: Dose Right [facility]: CareDose [facility]: Dose Right [facility]: Teradose 4D [facility]: Hexoskin ([employer]) RADIATION DOSE: CT Rad equipment meets quality standard of care and radiation dose reduction techniq ues were employed. CTDIvol: 14.8 mGy. DLP: 347 mGy-cm. mGy. LIMITATIONS: None. FINDINGS: ALIGNMENT: Anatomic. MINERALIZATION: Normal. VERTEBRAL BODIES: No fractures or dislocation. DISCS: Multilevel disc space narrowing with osteophytes. FACETS, LATERAL MASSES, POSTERIOR ELEMENTS: Facet arthropathy. No fractures. No dislocation. No ac lisa findings. HARDWARE: None in the spine. VISUALIZED RIBS: No fractures. LUNG APICES AND SOFT TISSUES: No significant or acute findings. OTHER: Chronic appearing minimal upper endplate depression at T3. IMPRESSION: CHRONIC DEGENERATIVE CHANGES. NO ACUTE FINDINGS. TECHNICAL DOCUMENTATION: JOB ID: [id number] Quality ID # [id number]: Final reports with documentation of one or more dose reduction techniques (e.g., Au tomated exposure control, adjustment of the mA and/or kV according to patient size, use of iterative reconstruction technique) 2010 [employer]- All Rights Reserved Reading location - IP/workstation name: [email or web address]
--- NOTE | 2018-09-30 15:55 | RADIOLOGY REPORT (SQ) ---
EXAM DESCRIPTION: CT FACIAL AREA WITHOUT COMPLETED DATE/TIME: 09/30/2018 3:30 pm REASON FOR STUDY: fall on blood thinners COMPARISON: CT cervical spine same date CT brain same date TECHNIQUE: Noncontrasted images through the facial bones and orbits windowed for bone and soft tissu e. Additional coronal and sagittal reconstructed images reviewed. All images stored on PACS. All CT scanners at this facility use dose modulation, iterative reconstruction, and/or weight based d osing when appropriate to reduce radiation dose to as low as reasonably achievable (ALARA). [facility]: Dose Right [facility]: CareDose [facility]: Dose Right [facility]: Teradose 4D [facility]: [employer] RADIATION DOSE: CT Rad equipment meets quality standard of care and radiation dose reduction techniq ues were employed. CTDIvol: 30.4 mGy. DLP: 674 mGy-cm. mGy. LIMITATIONS: None. FINDINGS: FACIAL BONES: No fracture or bone lesion. ORBITS: Intact. No fracture. Symmetric intact globes and retroorbital soft tissues. PARANASAL SINUSES: Clear. No significant mucosal thickening, mass or fluid. No nasal polyps. Maxill aviva sinus outlets are patent. SOFT TISSUES: Midline frontal scalp hematoma without underlying skull fracture. INFERIOR BRAIN: Limited view. No acute findings. OTHER: No other significant finding. IMPRESSION: Midline frontal scalp hematoma without underlying skull fracture TECHNICAL DOCUMENTATION: JOB ID: [id number] Quality ID # [id number]: Final reports with documentation of one or more dose reduction techniques (e.g., Au tomated exposure control, adjustment of the mA and/or kV according to patient size, use of iterative reconstruction technique) 2010 [employer]- All Rights Reserved Reading location - IP/workstation name: [email or web address]
--- NOTE | 2018-09-30 16:07 | ER Document Report ---
ED Fall - General Chief Complaint: Fall Stated Complaint: FALL/HEAD INJURY Time Seen by Provider: 09/30/18 15:43 Primary Care Provider: ANIBAL JOHNSON NP [Primary Care Provider] - Follow up as needed Mode of Arrival: Ambulatory Information source: Patient TRAVEL OUTSIDE OF THE [place] IN LAST 30 DAYS: No - HPI Patient complains to provider of: FALL, HEAD INJURY Notes: Patient here with complaints of fall and head injury. The patient is 83-year-old female who is on Eliquis. She states that she got up too fast and fell forward in her house hitting her forehead on her carpeted floor. No loss of consciousness. She denies any severe headache. No blurred or loss vision. No neck, back, chest, abdominal pain. She denies any unilateral numbness, tingling, weakness. She denies any nausea, vomiting, diarrhea. No rash. No shortness of breath. Pain is mild, worse with palpation, better with rest. Tetanus up-to-date within the last 5 years. No other injury, no other complaints. - Related data Allergies/Adverse Reactions: oxycodone HCl [From Percodan] Allergy (Verified 09/16/18 17:49) oxycodone terephthalate [From Percodan] Allergy (Verified 09/16/18 17:49) Past Medical History - Social History Smoking Status: Unknown if Ever Smoked Family History: Hypertension - Past Medical History Cardiac Medical History: Reports: Hx Atrial Fibrillation, Hx Congestive Heart Failure, Hx Hypertension Pulmonary Medical History: Reports: Hx COPD Denies: Hx Tuberculosis Renal/ Medical History: Reports: Hx Kidney Stones. Denies: Hx Peritoneal Dialysis Musculoskeletal Medical History: Reports Hx Arthritis Psychiatric Medical History: Reports: Hx Depression Past Surgical History: Reports: Hx Appendectomy, Hx Cholecystectomy, Hx Hysterectomy, Hx Kidney (Renal Surgery) - Partial kidney removal. Denies: Hx Pacemaker - Immunizations Hx Diphtheria, Pertussis, Tetanus Vaccination: Yes Hx Pneumococcal Vaccination: 05/08/12 Review of Systems - Review of Systems -: Yes All other systems reviewed and negative Physical Exam - Vital signs Vitals: Temp Pulse Resp BP Pulse Ox 97.7 F 56 L 18 156/72 H 96 09/30/18 15:30 09/30/18 15:30 09/30/18 15:30 09/30/18 15:30 09/30/18 15:30 - Notes Notes: GENERAL: alert, cooperative, nontoxic, no distress. HEAD: normocephalic, superficial abrasions to the forehead and nose with contusion and ecchymosis. No step-offs or crepitus. Minimal tenderness to palpation. No active bleeding. EYES: conjunctiva pink without discharge, no external redness or swelling. PERRL, EOM'S INTACT EARS: no external swelling, no external redness. No hemotympanum EM NOSE: No bleeding MOUTH/THROAT: mucous membranes moist and pink, posterior pharynx without erythema, swelling, exudate. No trismus or drooling. NECK: soft, supple, full range of motion, no meningismus. No midline tenderness step-offs or crepitus to palpation of the cervical spine. CHEST: no distress, lungs clear and equal throughout. No wheezing, rales, rhonchi. CARDIAC: regular rate and rhythm, no murmur, normal capillary refill, normal pulses. No peripheral edema noted. ABDOMEN: Soft, nontender. No ecchymosis. BACK: full range of motion, no CVA tenderness. No midline tenderness step-offs or crepitus to palpation of the thoracic or lumbar spine. EXTREMITIES: full range of motion of all extremities. No redness, no swelling. NEURO: alert and oriented x 3, no focal deficits, full range of motion of all extremities. Cranial nerves II through XII are grossly intact. Normal sensation bilaterally. Normal strength bilaterally. PYSCH: appropriate mood, affect. Patient is cooperative. SKIN: pink, warm, dry, no rash. Course - Re-evaluation Re-evalutation: 09/30/18 16:03 Patient nontoxic-appearing stable vitals. Patient here with complaints of minor head injury. She got up off her counts too quick and fell forward hitting her head on the carpeted floor. No loss of consciousness. She is on Eliquis. She is noted to have some contusions and abrasions to the forehead and nose. She is a nonfocal neurological exam. Remainder of her exam is unremarkable. CT head, face, cervical spine are negative for fracture or abnormalities. Patient states she is feeling great at this time. She declined anything for pain states she took some Tylenol earlier. This point she looks very well, she has no deficits on exam. Imaging is negative. This point the patient be discharged home with close return precautions. Follow-up for severe headache, blurred or loss vision, numbness, tingling, weakness, any further concerns. The patient's emergency department workup and current diagnosis were explained to the patient and or family. Follow-up instructions were provided. Medications if prescribed were discussed. Instructions for when to return to the emergency department including specific worrisome symptoms were discussed with the patient and/or family. - Vital Signs Vital signs: Temp Pulse Resp BP Pulse Ox 97.7 F 56 L 18 156/72 H 96 09/30/18 15:30 09/30/18 15:30 09/30/18 15:30 09/30/18 15:30 09/30/18 15:30 - Diagnostic Test Radiology reviewed: Image reviewed, Reports reviewed - CT head, neck, facial bones negative for acute findings. Discharge - Discharge Clinical Impression: Facial contusion Qualifiers: Encounter type: initial encounter Qualified Code(s): S00.83XA - Contusion of other part of head, initial encounter Condition: Stable Disposition: HOME, SELF-CARE Instructions: Head Injury Precautions ([facility]), Contusion ([facility]) Additional Instructions: Take Tylenol as needed for pain. Apply ice to sore area. Keep wounds clean and dry. Follow-up for severe headache, blurred or loss vision, numbness, tingling, weakness, persistent vomiting, or for any further concerns. Referrals: ANIBAL JOHNSON [facility] [Primary Care Provider] - Follow up as needed
== END 2018-09-30 16:16 | disposition home or self-care (01) ==
LOC: ER 15:08
DX: S00.83XA Contusion of other part of head, initial encounter (principal); S00.81XA Abrasion of other part of head, initial encounter; W18.30XA Fall on same level, unspecified, initial encounter; Y92.009 Unspecified place in unspecified non-institutional (private) residence as the place of occurrence of the external cause; Z79.01 Long term (current) use of anticoagulants; Z88.6 Allergy status to analgesic agent; I48.91 Unspecified atrial fibrillation; I50.9 Heart failure, unspecified; I11.0 Hypertensive heart disease with heart failure; Z87.442 Personal history of urinary calculi; Z90.49 Acquired absence of other specified parts of digestive tract; Z90.710 Acquired absence of both cervix and uterus
CPT/HCPCS: 99283; 70450; 70486; 72125; A9270